=== PATIENT | female | born 1935 | race Caucasian/White ===

== ENCOUNTER 2019-03-07 16:07 | Inpatient (IN) | payer MEDICARE ==
[2019-03-07] MEDS ORDERED: SODIUM CHLORIDE 0.9% 500 ML 500 ML IV STA (16:32)
[2019-03-07] MEDS ORDERED: KETOROLAC 30 MG/ML 1 ML VIAL IVP STA (16:33)
--- NOTE | 2019-03-07 16:45 | ED ---
Back Pain HPI - General Chief Complaint: Back Pain/Injury Stated Complaint: PAIN IN BACK AND RT LEG Time Seen by Provider: 03/07/19 16:19 Source: patient, family, RN notes reviewed Limitations: no limitations - History of Present Illness Initial Comments: This is a 83-year-old female who states for the past 2 weeks or so she's had some low back pain and pain radiating down her right leg. She's had evaluation which included ultrasounds and CAT scan. She states she has had a history of some type of lumbar disc disease in the past. She was on steroids as well as nonsteroidal anti-inflammatories also on tramadol and Vicodin she states pain gets as severe as 9/10 severity she denies any trauma no fevers chills nausea vomiting sweats. No trouble with urination or bowel movements other than to say that she has had some frequency. No blood reported. No abdominal pain she states pain radiates down her leg toward her thigh and groin area. He was only down to the anterior part of her leg. She believes she was initially told was not sciatica. She has have an MRI scheduled for this coming at [facility] she was instructed to come here by her physician because we do have an MRI MD Complaint: back pain - Related Data Home Medications Medication Instructions Recorded Confirmed Acetaminophen Tab [Tylenol Tab] 325 mg PO BID 03/07/19 03/07/19 Aspirin 325 mg PO DAILY 03/07/19 03/07/19 Cholecalciferol [Vitamin D3 (25 1,000 unit PO DAILY 03/07/19 03/07/19 Mcg = 1000 Iu)] Citalopram Hydrobromide [CeleXA] 20 mg PO DAILY 03/07/19 03/07/19 Diazepam [Valium] 2.5 mg PO DAILY 03/07/19 03/07/19 HYDROcodone/APAP 5-325MG [[place] 1 tab PO Q4HR PRN 03/07/19 03/07/19 5-325] LORazepam [Ativan] 0.5 mg PO DAILY 03/07/19 03/07/19 Loperamide HCl [Loperamide] 2 mg PO DAILY PRN 03/07/19 03/07/19 Losartan-Hctz 50-12.5 mg [Hyzaar 1.5 tab PO DAILY 03/07/19 03/07/19 50-12.5] Meloxicam 15 mg PO HS 03/07/19 03/07/19 Multivitamin [Multivitamins Adult 1 tab PO DAILY 03/07/19 03/07/19 Gummies] [place]-3 Fatty Acids/Fish Oil [Fish 1 cap PO DAILY 03/07/19 03/07/19 Oil 1,000 mg Softgel] Horne Colon 10mg 10 mg PO DAILY 03/07/19 03/07/19 lamoTRIgine [LaMICtal] 25 mg PO HS 03/07/19 03/07/19 Allergies Allergy/AdvReac Type Severity Reaction Status Date / Time codeine Allergy Unknown Verified 03/07/19 16:33 Sulfa (Sulfonamide Allergy Unknown Verified 03/07/19 16:33 Antibiotics) Childhood Review of Systems ROS Statement: Those systems with pertinent positive or pertinent negative responses have been documented in the HPI. ROS Other: All systems not noted in ROS Statement are negative. Past Medical History Past Medical History: Hypertension History of Any Multi-Drug Resistant Organisms: None Reported Past Surgical History: Cholecystectomy, Hysterectomy Past Psychological History: Depression Smoking Status: Never smoker Past Alcohol Use History: None Reported Past Drug Use History: None Reported General Exam - General Exam Comments Initial Comments: This is a well-developed sec appearing female who is awake alert oriented 3 Limitations: no limitations General appearance: alert, anxious Head exam: Present: atraumatic, normocephalic, normal inspection Eye exam: Present: normal appearance, PERRL, EOMI. Absent: scleral icterus, conjunctival injection, periorbital swelling ENT exam: Present: normal exam, mucous membranes moist Neck exam: Present: normal inspection. Absent: tenderness, meningismus, lymphadenopathy Respiratory exam: Present: normal lung sounds bilaterally. Absent: respiratory distress, wheezes, rales, rhonchi, stridor Cardiovascular Exam: Present: regular rate, normal rhythm, normal heart sounds. Absent: systolic murmur, diastolic murmur, rubs, gallop, clicks GI/Abdominal exam: Present: soft, normal bowel sounds. Absent: distended, tenderness, guarding, rebound, rigid Rectal exam: Present: deferred Extremities exam: Present: normal inspection, full ROM, normal capillary refill, other (Tenderness to palpation of the right gluteal musculature. No SI joint tenderness). Absent: tenderness, pedal edema, joint swelling, calf tenderness Back exam: Present: normal inspection Neurological exam: Present: alert, oriented X3, CN II-XII intact Psychiatric exam: Present: normal affect, normal mood Skin exam: Present: warm, dry, intact, normal color. Absent: rash Course Vital Signs 03/07/19 03/07/19 16:13 17:03 Temperature 97.9 F Pulse Rate 85 75 Respiratory 18 18 Rate Blood Pressure 171/80 180/85 O2 Sat by Pulse 99 100 Oximetry - Reevaluation(s) Reevaluation #1: 03/07/19 17:37 Reevaluation patient reveals no improvement thus far the pain. She still has significant pain. I did review the imaging that was unremarkable [facility] which was a CAT scan of the pelvis which did show degenerative changes of the hips and spine due to the persistent pain patient be admitted for pain control and MRI tomorrow. MRI currently not available the case is discussed with Dr. Doyle Medical Decision Making - Lab Data Result diagrams: 03/07/19 16:55 03/07/19 16:55 Lab Results 03/07/19 03/07/19 03/07/19 Range/Units 16:50 16:55 16:55 WBC 14.1 H (3.8-10.6) k/uL RBC 4.18 (3.80-5.40) m/uL Hgb 12.7 (11.4-16.0) gm/dL Hct 37.9 (34.0-46.0) % MCV 90.8 (80.0-100.0) fL MCH 30.3 (25.0-35.0) pg MCHC 33.4 (31.0-37.0) g/dL RDW 12.9 (11.5-15.5) % Plt Count 316 (150-450) k/uL Neutrophils % 72 % Lymphocytes % 20 % Monocytes % 6 % Eosinophils % 1 % Basophils % 0 % Neutrophils # 10.2 H (1.3-7.7) k/uL Lymphocytes # 2.8 (1.0-4.8) k/uL Monocytes # 0.8 (0-1.0) k/uL Eosinophils # 0.1 (0-0.7) k/uL Basophils # 0.0 (0-0.2) k/uL Sodium 139 (137-145) mmol/L Potassium 3.7 (3.5-5.1) mmol/L Chloride 98 (98-107) mmol/L Carbon Dioxide 32 H (22-30) mmol/L Anion Gap 9 mmol/L BUN 25 H (7-17) mg/dL Creatinine 0.87 (0.52-1.04) mg/dL Est GFR (CKD-EPI)AfAm 71 (>60 ml/min/1.73 sqM) Est GFR (CKD-EPI)NonAf 62 (>60 ml/min/1.73 sqM) Glucose 110 H (74-99) mg/dL Calcium 9.6 (8.4-10.2) mg/dL Magnesium 2.0 (1.6-2.3) mg/dL Total Bilirubin 0.5 (0.2-1.3) mg/dL AST 31 (14-36) U/L ALT 23 (9-52) U/L Alkaline Phosphatase 85 (38-126) U/L Creatine Kinase 83 (30-135) U/L Total Protein 7.9 (6.3-8.2) g/dL Albumin 4.7 (3.5-5.0) g/dL Urine Color Yellow Urine Appearance Clear (Clear) Urine pH 6.0 (5.0-8.0) Ur Specific [place] 1.030 (1.001-1.035) Urine Protein Trace H (Negative) Urine Glucose (UA) Negative (Negative) Urine Ketones Negative (Negative) Urine Blood Moderate H (Negative) Urine Nitrite Negative (Negative) Urine Bilirubin Negative (Negative) Urine Urobilinogen <2.0 (<2.0) mg/dL Ur Leukocyte Esterase Negative (Negative) Urine RBC 21 H (0-5) /hpf Urine WBC 2 (0-5) /hpf Ur Squamous Epith Cells 2 (0-4) /hpf Amorphous Sediment Rare H (None) /hpf Urine Mucus Rare H (None) /hpf Disposition Clinical Impression: Sciatica, Degeneration of intervertebral disc, Intractable back pain, Hematuria Disposition: ADMITTED IP TO THIS [facility] Condition: Fair Referrals: Mark Bernabe MD [Primary Care Provider] - 1-2 days
[2019-03-07 17:05] LABS: Basophils % (A) 0 %; Eosinophils # (A) 0.1 k/uL (0-0.7); Eosinophils % (A) 1 %; HCT 37.9 % (34.0-46.0); HGB 12.7 gm/dL (11.4-16.0); Lymphocytes # (A) 2.8 k/uL (1.0-4.8); Lymphocytes % (A) 20 %; MCH 30.3 pg (25.0-35.0); MCHC 33.4 g/dL (31.0-37.0); MCV 90.8 fL (80.0-100.0); Mean Platelet Volume 5.5; Monocytes # (A) 0.8 k/uL (0-1.0); Monocytes % (A) 6 %; Neutrophils # (A) 10.2 k/uL (1.3-7.7); Neutrophils % (A) 72 %; Platelet Count 316 k/uL (150-450); RBC 4.18 m/uL (3.80-5.40); RDW 12.9 % (11.5-15.5); WBC 14.1 k/uL (3.8-10.6)
[2019-03-07 17:13] LABS: Amorphous Sediment,Urine Rare /hpf; Appearance,Urine Clear (Clear); Bilirubin,Urine Negative (Negative); Blood,Urine Moderate (Negative); Color,Urine Yellow; Glucose,Urine (UA) Negative (Negative); Ketones,Urine Negative (Negative); Leukocyte Esterase,Urine Negative (Negative); Mucus,Urine Rare /hpf; Nitrite,Urine Negative (Negative); Protein,Urine Trace (Negative); RBC,Urine 21 /hpf (0-5); Squamous Epithelial Cell,Urine 2 /hpf (0-4); Urobilinogen,Urine <2.0 mg/dL (<2.0)
[2019-03-07 17:13] LABS: Albumin 4.7 g/dL (3.5-5.0); Calcium 9.6 mg/dL (8.4-10.2); Potassium 3.7 mmol/L (3.5-5.1); Total Bilirubin 0.5 mg/dL (0.2-1.3); Total Protein 7.9 g/dL (6.3-8.2)
[2019-03-07] MEDS ORDERED: HYDROmorphone 1 MG/ML 1 ML SYRINGE IVP STA (17:37)
[2019-03-07] MEDS ORDERED: ONDANSETRON 4 MG/2 ML VIAL IVP STA (17:37)
[2019-03-07] MEDS ORDERED: ACETAMINOPHEN TAB 325 MG TAB PO PRN (17:40)
[2019-03-07] MEDS ORDERED: NALOXONE 0.4 MG/ML 1 ML VIAL IV PRN (17:40)
[2019-03-07] MEDS ORDERED: HYDROmorphone 1 MG/ML 1 ML SYRINGE IVP PRN (17:40)
[2019-03-07] MEDS: SODIUM CHLORIDE 0.9% 1,000 ML IV SCH (21:09)
[2019-03-07] MEDS ORDERED: ONDANSETRON 4 MG/2 ML VIAL IVP PRN (21:38)
[2019-03-07] MEDS: ONDANSETRON 4 MG/2 ML VIAL IVP PRN (21:59)
--- NOTE | 2019-03-07 22:03 | XR ---
EXAMINATION TYPE: XR chest 1V portable DATE OF EXAM: 03/07/2019 COMPARISON: NONE HISTORY: Heart failure. Short of breath TECHNIQUE: Single frontal view of the chest is obtained. FINDINGS: There is no heart failure nor confluent pneumonic infiltrate. Costophrenic angles are salvador r. Heart size is normal. Bony thorax is intact. IMPRESSION: No active cardiopulmonary disease.
--- NOTE | 2019-03-07 22:21 | HP ---
HISTORY AND PHYSICAL DATE OF SERVICE: 03/07/2019. CHIEF COMPLAINTS: Back pain. HISTORY OF PRESENT ILLNESS: This 83-year-old woman with a past medical history of hypertension, history of cholecystectomy, history of CAD, history of depression, being followed by Dr. Andrew Bernabe in the outpatient setting complaining of back pain since 2 weeks. The patient had outpatient treatment without much relief. Patient also had attended [facility] where CT scan was done and showed some DJD. The patient received steroids and NSAIDS. The pain is felt in the back mostly on the right side radiating down to the foot with crampy type of pain which is felt mostly posterior part and lateral part and the patient came to [facility] for further evaluation and treatment. There is no history of fever, rigors or chills. No history of headache, loss of consciousness or seizures at this time. MRI has been ordered. PAST MEDICAL HISTORY: History of cholecystectomy, CAD, stent, hypertension, history of depression. MEDICATIONS: Prior to admission include: 1. Lamictal 25 mg q.h.s. 2. Meloxicam 50 mg q.h.s. 3. Loperamide 2 mg daily p.r.n. 4. Tylenol 320 mg p.o. b.i.d. 5. Ativan 0.5 mg daily. 6. Valium 2.5 mg daily. 7. Celexa 20 mg p.o. daily. 8. Vitamin D3 1000 daily. 9. Fish oil 1 capsule p.o. daily. 10.Multivitamins 1 p.o. daily. 11.Hyzaar 50/12.5 mg 1.5 daily. 12.Aspirin 320 mg p.o. daily. 13.Hydrocodone 1 tab q.4 p.r.n. ALLERGIES: CODEINE, SULFA. FAMILY HISTORY: History of angina, chest pain, angina. SOCIAL HISTORY: No history of smoking. No history of alcohol. REVIEW OF SYSTEMS: ENT: Diminished vision. Diminished hearing. CARDIOVASCULAR: No angina or palpitations. RESPIRATION: As mentioned earlier. GI no nausea or vomiting. no dysuria. NERVOUS SYSTEM: No numbness or weakness. ALLERGY/IMMUNOLOGY: No asthma, or hayfever. MUSCULOSKELETAL as mentioned earlier. HEMATOLOGY: No history of anemia. ENDOCRINE: No history of diabetes or hypothyroidism. CONSTITUTIONAL: As mentioned earlier. DERMATOLOGY: Negative. RHEUMATOLOGY: Negative. PSYCHIATRIC: As mentioned earlier. PHYSICAL EXAMINATION: Alert and oriented times three. Pulse 73, blood pressure 130/70, respiration 18, temperature 97.9, pulse ox 97% on room air. HEENT: Conjunctivae normal. NECK: No jugular venous distention. No carotid bruit. No lymph node enlargement. CARDIOVASCULAR: S1, S2 muffled. RESPIRATIONS: Breath sounds diminished in the bases. No rhonchi. No crackles. ABDOMEN: Soft, nontender. No mass palpable. LEGS: Significant pain on movement of the right leg. No sensory abnormality. No motor abnormality. Legs otherwise pulses felt normally. SKIN: No ulcer, rash or bleeding. JOINTS: No active deforming arthropathy. LYMPHATICS: No lymph nodes palpable in the neck, axilla or groin. LABS: WBC 14.2, hemoglobin 12.7. Sodium 130. Potassium 3.7, glucose 110. UA noted. ASSESSMENT: 1. Severe back pain, intractable back pain with possible degenerative joint disease and with possible radiculopathy with failure of outpatient treatment and severe gait dysfunction secondary to back pain. 2. Increased WBC. 3. History of coronary artery disease/ stent. 4. History of cholecystectomy. 5. Hypertension. 6. History of depression. RECOMMENDATIONS AND DISCUSSION: This 83-year-old woman who presented with multiple complex medical issues, at this time, I recommend to continue current medications, continue to monitor and symptomatic treatment. Otherwise at this time I will be provided intravenous pain medications cautiously. Orthopedic evaluation. MRI. Resume the home medications. DVT prophylaxis. Incentive spirometry. The prognosis guarded because of multiple complex medical issues. Further recommendations to follow. A copy of this will be forwarded to Dr. Andrew Bernabe who is the primary physician. MMODL / IJN: [id number] / MTDD
[2019-03-07] MEDS: PANTOPRAZOLE 40 MG/10 ML VIAL IVP SCH (23:02)
[2019-03-07] MEDS: HYDROcodone/APAP 5-325MG 1 EACH TAB PO PRN (23:02)
[2019-03-07] MEDS: lamoTRIgine 25 MG TAB PO SCH (23:02)
[2019-03-08] MEDS: HYDROmorphone 1 MG/ML 1 ML SYRINGE IVP PRN ×3 (06:05→16:59)
[2019-03-08] MEDS: SODIUM CHLORIDE 0.9% 1,000 ML IV SCH ×2 (07:55→20:59)
[2019-03-08] MEDS: PANTOPRAZOLE 40 MG/10 ML VIAL IVP SCH (08:03)
[2019-03-08] MEDS: ASPIRIN 325 MG TAB PO SCH ×2 (08:05→08:09)
[2019-03-08] MEDS: HYDROcodone/APAP 5-325MG 1 EACH TAB PO PRN ×2 (08:05→23:13)
[2019-03-08] MEDS: CITALOPRAM HYDROBROMIDE 20 MG TAB PO SCH (08:06)
[2019-03-08] MEDS: HEPARIN SODIUM,PORCINE 5,000 UNIT/ML 1 ML VIAL SQ SCH ×2 (08:06→20:51)
[2019-03-08] MEDS: CHOLECALCIFEROL 1,000 UNIT TAB PO SCH (08:06)
[2019-03-08] MEDS: MULTIVITAMINS, THERA 1 EACH TAB PO SCH (08:07)
[2019-03-08] MEDS: LORazepam 0.5 MG TAB PO SCH (08:07)
[2019-03-08] MEDS ORDERED: DIAZEPAM 5 MG TAB PO SCH (09:00)
[2019-03-08] MEDS ORDERED: NON FORMULARY DRUG (Omega-3 Fatty Acids/Fish Oil [Fish Oil 1,000 Mg Softgel] 1 CAP) PO SCH (09:00)
--- NOTE | 2019-03-08 09:39 | P.CNOR ---
History of Present Illness - HPI Consult date: 03/08/19 Consult reason: low back pain, other (Right lower extremity radiculopathy) History of present illness: Patient's very pleasant 83-year-old female has been having severe right lower extremity pain over the past 2 weeks. She said she had back pain with past month and has history of sciatica on the left side but this is the first time she had issues in her right lower extremity. She denies any specific trauma. She denies any change in her activity. She normally ambulates and exercises almost daily. She says over the past 2 weeks she has been having severe difficulty with any sort of mobilization and ambulation to the point where she is essentially unable to get out of better get around the house on her own. She says the pain travels from her back over her gluteus and down her right leg all the way down to her foot. She says that her leg does not feel weak but she is unable to manage due to the pain. She denies any changes in bowel bladder function she denies any fevers chills. She denies any night sweats. She denies any shortness of breath. she denies any specific injury after back or leg. Review of Systems Estimated per HPI. Denies any trauma to her back or lower extremity. Denies any recent falls. She is normally a community ambulate without any assistance. She was trying to treat these issues appropriately as outpatient with Dr. Bernabe and underwent medications with anti-inflammatories as well as Medrol Dosepak was not having relief. Past Medical History Past Medical History: Hypertension History of Any Multi-Drug Resistant Organisms: None Reported Past Surgical History: Cholecystectomy, Heart Catheterization With Stent, Hysterectomy Past Anesthesia/Blood Transfusion Reactions: No Reported Reaction Date of Last Stent Placement:: 2008 Past Psychological History: Depression Smoking Status: Never smoker Past Alcohol Use History: None Reported Past Drug Use History: None Reported - Past Family History Father Family Medical History: Chest Pain / Angina Medications and Allergies Home Medications Medication Instructions Recorded Confirmed Type Acetaminophen Tab [Tylenol Tab] 325 mg PO BID 03/07/19 03/07/19 History Aspirin 325 mg PO DAILY 03/07/19 03/07/19 History Cholecalciferol [Vitamin D3 (25 1,000 unit PO DAILY 03/07/19 03/07/19 History Mcg = 1000 Iu)] Citalopram Hydrobromide [CeleXA] 20 mg PO DAILY 03/07/19 03/07/19 History Diazepam [Valium] 2.5 mg PO DAILY 03/07/19 03/07/19 History HYDROcodone/APAP 5-325MG [[place] 1 tab PO Q4HR PRN 03/07/19 03/07/19 History 5-325] LORazepam [Ativan] 0.5 mg PO DAILY 03/07/19 03/07/19 History Loperamide HCl [Loperamide] 2 mg PO DAILY PRN 03/07/19 03/07/19 History Losartan-Hctz 50-12.5 mg [Hyzaar 1.5 tab PO DAILY 03/07/19 03/07/19 History 50-12.5] Meloxicam 15 mg PO HS 03/07/19 03/07/19 History Multivitamin [Multivitamins Adult 1 tab PO DAILY 03/07/19 03/07/19 History Gummies] [place]-3 Fatty Acids/Fish Oil [Fish 1 cap PO DAILY 03/07/19 03/07/19 History Oil 1,000 mg Softgel] [place] 10mg 10 mg PO DAILY 03/07/19 03/07/19 History lamoTRIgine [LaMICtal] 25 mg PO HS 03/07/19 03/07/19 History Allergies Allergy/AdvReac Type Severity Reaction Status Date / Time codeine Allergy Unknown Verified 03/07/19 16:33 Sulfa (Sulfonamide Allergy Unknown Verified 03/07/19 16:33 Antibiotics) Childhood Physical Examination Osteopathic Statement: *. No significant issues noted on an osteopathic structural exam other than those noted in the History and Physical/Consult. - L Spine: dermatomal strength & reflexes bilateral Strength: hip flexion: 5/5 (At her low back she has some paravertebral spasm in her lumbosacral junction. There is no open wounds lacerations or abrasions. At her lower extremity she has 5 out of 5 strength with hip flexion and knee ext ension dorsal flexion plantarflexion. There is no pain with internal or external rotation of her hips. She is able to lift her legs up off the bed independently. Her thighs and calves soft nontender. There is no swelling. She is neurologically intact. distal pulses are intact.) Results Apparently she had a computed tomography scan done at [facility] but we do not have those results or the images available to us. - Labs Labs: Abnormal Lab Results - Last 24 Hours (Table) 03/07/19 03/07/19 03/07/19 Range/Units 16:50 16:55 16:55 WBC 14.1 H (3.8-10.6) k/uL Neutrophils # 10.2 H (1.3-7.7) k/uL Carbon Dioxide 32 H (22-30) mmol/L BUN 25 H (7-17) mg/dL Glucose 110 H (74-99) mg/dL Urine Protein Trace H (Negative) Urine Blood Moderate H (Negative) Urine RBC 21 H (0-5) /hpf Amorphous Sediment Rare H (None) /hpf Urine Mucus Rare H (None) /hpf H & H 03/07/19 Range/Units 16:55 Hgb 12.7 (11.4-16.0) gm/dL Hct 37.9 (34.0-46.0) % Result Diagrams: 03/07/19 16:55 03/07/19 16:55 Assessment and Plan Assessment: Acute right lower extremity radiculopathy Inability to ambulate Low back pain no focal neurologic deficit Plan: Acute right lower extremity radiculopathy Inability to ambulate Low back pain no focal neurologic deficit Patient has severe right lower extremity radiculopathy with inability to ambulate. She had some short-term relief with her IV pain medication overnight but may have some better lasting relief with IV steroid medications and then converting to oral steroids. She has significant radicular symptoms which seem to stem from her lumbar spine and I think the MRI is necessary to further ascertain the severity of her stenosis for possible new herniation at her lumbar spine. The MRI has already been ordered and will follow up for its results. If she is not having significant benefit with medication and I think she is a candidate for interventional pain management and will consult pain management for possible epidural steroid injection. She should continue her medical management in regards to her other medical issues and will continue follow her closely. We'll have further recommendations once the MRI is available.
[2019-03-08] MEDS: LOSARTAN-HCTZ 50-12.5 MG 1 EACH TAB PO SCH (10:02)
[2019-03-08 10:19] LABS: Calcium 8.9 mg/dL (8.4-10.2); Potassium 3.8 mmol/L (3.5-5.1)
[2019-03-08] MEDS: methylPREDNISolone SOD SUCCI 125 MG/2 ML VIAL IV SCH ×2 (10:20→20:56)
[2019-03-08 10:27] LABS: Basophils % (A) 0 %; Eosinophils # (A) 0.1 k/uL (0-0.7); Eosinophils % (A) 1 %; HCT 33.4 % (34.0-46.0); HGB 10.8 gm/dL (11.4-16.0); Lymphocytes # (A) 2.8 k/uL (1.0-4.8); Lymphocytes % (A) 24 %; MCH 29.9 pg (25.0-35.0); MCHC 32.2 g/dL (31.0-37.0); MCV 92.8 fL (80.0-100.0); Mean Platelet Volume 5.8; Monocytes # (A) 0.7 k/uL (0-1.0); Monocytes % (A) 6 %; Neutrophils # (A) 7.9 k/uL (1.3-7.7); Neutrophils % (A) 67 %; Platelet Count 261 k/uL (150-450); RDW 12.8 % (11.5-15.5); WBC 11.7 k/uL (3.8-10.6)
[2019-03-08] MEDS: ONDANSETRON 4 MG/2 ML VIAL IVP PRN (11:00)
--- NOTE | 2019-03-08 15:00 | P.PAINCN ---
History of Present Illness - Reason for Consult Consult date: 03/08/19 - Chief Complaint Low back pain with radiation to right lower extremity - History of Present Illness Patient is a very pleasant 83-year-old female who was referred to pain management by Dr. Mcgowan. About one month ago, she reports having right-sided low back pain radiating to right buttock. She denies any inciting event. She used BenGay and this resolved. Then, on 02/21/2019, she reports that she woke up from bed and couldn't put weight on her right leg. She was evaluated by her PCP who ordered oral steroids and NSAIDs, she obtained no benefit from this. Then, she was given tramadol and an Xray was ordered. She was then sent to physical therapy, with no benefit. She was also given IM steroid injection. On March 04, she had significantly worse pain and was evaluated at [facility] on March 05 at which point a computed tomography scan was done of her low back as well as lower extremity Doppler, which was negative. She was prescribed [place] and discharged. Yesterday, her pain was severe and she was brought [facility]. She received IV pain medications which helped significantly. However these are causing her to be nauseated and constipated. Of note, prior to this admission, the patient was extremely active, walking a mile a day, riding her bicycle for 2 miles and participating in exercise groups. This has significantly debilitated her. Her pain is located in the right side of her low back radiating to the front of her right thigh and hurst up to ankle. She denies pain in toes. She denies numbness, tingling, weakness. She does report that approximately 2 years ago, she had left sided sciatica that resolved after an injection. Other than this, she has not undergone any injections. Review of Systems Review of systems is negative for chest pain, shortness of breath, new onset weakness, numbness/tingling, abdominal pain, malaise, fever, night sweats, chills, homicidal or suicidal ideation, or bowel or bladder incontinence. She does endorse constipation and nausea since she was started on narcotics. Past Medical History Past Medical History: Hypertension History of Any Multi-Drug Resistant Organisms: None Reported Past Surgical History: Cholecystectomy, Heart Catheterization With Stent, Hysterectomy Past Anesthesia/Blood Transfusion Reactions: No Reported Reaction Date of Last Stent Placement:: 2008 Past Psychological History: Depression Smoking Status: Never smoker Past Alcohol Use History: None Reported Past Drug Use History: None Reported - Past Family History Father Family Medical History: Chest Pain / Angina Medications and Allergies Home Medications Medication Instructions Recorded Confirmed Type Acetaminophen Tab [Tylenol Tab] 325 mg PO BID 03/07/19 03/07/19 History Aspirin 325 mg PO DAILY 03/07/19 03/07/19 History Cholecalciferol [Vitamin D3 (25 1,000 unit PO DAILY 03/07/19 03/07/19 History Mcg = 1000 Iu)] Citalopram Hydrobromide [CeleXA] 20 mg PO DAILY 03/07/19 03/07/19 History Diazepam [Valium] 2.5 mg PO DAILY 03/07/19 03/07/19 History HYDROcodone/APAP 5-325MG [[place] 1 tab PO Q4HR PRN 03/07/19 03/07/19 History 5-325] LORazepam [Ativan] 0.5 mg PO DAILY 03/07/19 03/07/19 History Loperamide HCl [Loperamide] 2 mg PO DAILY PRN 03/07/19 03/07/19 History Losartan-Hctz 50-12.5 mg [Hyzaar 1.5 tab PO DAILY 03/07/19 03/07/19 History 50-12.5] Meloxicam 15 mg PO HS 03/07/19 03/07/19 History Multivitamin [Multivitamins Adult 1 tab PO DAILY 03/07/19 03/07/19 History Gummies] [place]-3 Fatty Acids/Fish Oil [Fish 1 cap PO DAILY 03/07/19 03/07/19 History Oil 1,000 mg Softgel] Horne Colon 10mg 10 mg PO DAILY 03/07/19 03/07/19 History lamoTRIgine [LaMICtal] 25 mg PO HS 03/07/19 03/07/19 History Allergies Allergy/AdvReac Type Severity Reaction Status Date / Time codeine Allergy Unknown Verified 03/07/19 16:33 Sulfa (Sulfonamide Allergy Unknown Verified 03/07/19 16:33 Antibiotics) Childhood Physical Exam Vitals: Vital Signs Temp Pulse Pulse Resp BP BP Pulse Ox 03/08/19 08:00 16 03/08/19 07:00 97.7 F 71 16 150/70 98 03/07/19 20:10 98.1 F 70 20 150/70 97 03/07/19 19:08 73 18 139/73 97 03/07/19 17:03 75 18 180/85 100 03/07/19 16:13 97.9 F 85 18 171/80 99 Intake and Output 03/07/19 03/08/19 03/08/19 22:59 06:59 14:59 Intake Total 200 Balance 200 Intake: Oral 200 Other: Voiding Method Toilet Toilet Bedside Commode Bedside Commode # Voids 1 Weight 69.4 kg Physical exam: GENERAL: Well appearing, in no acute distress PSYCH: Mood and affect is appropriate. Awake, alert, and oriented SKIN: Skin color, texture, turgor normal, no rashes or lesions HEENT: Normocephalic, atraumatic. EOM intact CV: No pedal edema RESP: Respirations are unlabored, no audible wheezing GI: Abdomen non-distended MUSCULOSKELETAL: Bilateral lower extremity strength is normal and symmetric, 5 on 5 throughout. No atrophy or tone abnormalities are noted. Lumbar spine: Straight leg raising in the sitting position is positive on the right side for radicular pain. Tenderness to palpation over the lumbar spine and paraspinous muscles on the right side. Buttocks: No pain to palpation over the PSIS Extremities: Peripheral joint ROM is full and pain free without obvious instability or laxity in all four extremities. No edema or skin discolorations noted. NEUR: Bilateral lower extremity coordination and muscle stretch reflexes are physiologic and symmetric. Negative clonus bilaterally. No loss of sensation is noted. Results Results: Apparently she had a computed tomography scan done at [facility] but we do not have those results or the images available to us. She is scheduled to undergo an MRI today, these results are not yet available. CBC & Chem 7: 03/08/19 09:33 03/08/19 09:33 Labs: Abnormal Lab Results - Last 24 Hours (Table) 03/07/19 03/07/19 03/07/19 Range/Units 16:50 16:55 16:55 WBC 14.1 H (3.8-10.6) k/uL RBC (3.80-5.40) m/uL Hgb (11.4-16.0) gm/dL Hct (34.0-46.0) % Neutrophils # 10.2 H (1.3-7.7) k/uL Carbon Dioxide 32 H (22-30) mmol/L BUN 25 H (7-17) mg/dL Glucose 110 H (74-99) mg/dL Urine Protein Trace H (Negative) Urine Blood Moderate H (Negative) Urine RBC 21 H (0-5) /hpf Amorphous Sediment Rare H (None) /hpf Urine Mucus Rare H (None) /hpf 03/08/19 03/08/19 Range/Units 09:33 09:33 WBC 11.7 H (3.8-10.6) k/uL RBC 3.60 L (3.80-5.40) m/uL Hgb 10.8 L (11.4-16.0) gm/dL Hct 33.4 L (34.0-46.0) % Neutrophils # 7.9 H (1.3-7.7) k/uL Carbon Dioxide 31 H (22-30) mmol/L BUN 27 H (7-17) mg/dL Glucose 106 H (74-99) mg/dL Urine Protein (Negative) Urine Blood (Negative) Urine RBC (0-5) /hpf Amorphous Sediment (None) /hpf Urine Mucus (None) /hpf Assessment and Plan Plan: Assessment: Acute right lower extremity radiculopathy Inability to ambulate Low back pain no focal neurologic deficit Plan: 1. Awaiting MRI. Once MRI obtained, we can decide course of action from a procedure standpoint. I have asked that the patient be nothing by mouth from midnight and hold a.m. dose of heparin in anticipation of procedure tomorrow. 2. Medication management per primary service PQRS Measure Charge Sheet PQRS Narrative: Smoking Status Never smoker Do You Want the Pneumonia Vaccine Up to Date Vaccine AT THIS TIME? Blood Pressure [Left Arm] 150/70 Blood Pressure 139/73 Pain Intensity [Generalized] 4 Pain Intensity 6 Pain Scale Used Numeric (1 - 10) Scale Used Numeric (1 - 10) Home Medications: Ambulatory Orders Acetaminophen Tab [Tylenol Tab] 325 mg PO BID 03/07/19 Aspirin 325 mg PO DAILY 03/07/19 Cholecalciferol [Vitamin D3 (25 Mcg = 1000 Iu)] 1,000 unit PO DAILY 03/07/19 Citalopram Hydrobromide [CeleXA] 20 mg PO DAILY 03/07/19 Diazepam [Valium] 2.5 mg PO DAILY 03/07/19 HYDROcodone/APAP 5-325MG [[place] 5-325] 1 tab PO Q4HR PRN 03/07/19 LORazepam [Ativan] 0.5 mg PO DAILY 03/07/19 Loperamide HCl [Loperamide] 2 mg PO DAILY PRN 03/07/19 Losartan-Hctz 50-12.5 mg [Hyzaar 50-12.5] 1.5 tab PO DAILY 03/07/19 Meloxicam 15 mg PO HS 03/07/19 Multivitamin [Multivitamins Adult Gummies] 1 tab PO DAILY 03/07/19 [place]-3 Fatty Acids/Fish Oil [Fish Oil 1,000 mg Softgel] 1 cap PO DAILY 03/07/19 Horne Colon 10mg 10 mg PO DAILY 03/07/19 lamoTRIgine [LaMICtal] 25 mg PO HS 03/07/19
--- NOTE | 2019-03-08 18:27 | MR ---
EXAMINATION TYPE: MR lumbar spine wo con DATE OF EXAM: 03/08/2019 COMPARISON: NONE HISTORY: Intractable back pain. TECHNIQUE: Multiplanar, multisequence imaging of the lumbar spine is performed without IV contrast. FINDINGS: Sagittal images of the lumbar spine show vertebral body heights and alignment to appear sat isfactory. Multilevel disc desiccation with fairly moderate to advanced multilevel disc space narrowi ng L2-L3 through the L4-L5 levels as there is vacuum disc phenomenon and moderate anterior spurring. The conus medullaris is normal in position and signal ending mid L1 level. Heterogeneous endplate ch anges most prominent L3-L4 level where there is predominantly Modic type II changes noted. Axial images at T12-L1 levels show mild facet degenerative changes and ligament flavum hypertrophy. Axial images at L1-L2 levels mild/moderate broad-based disc bulge effacing anterior thecal sac with m oderate facet degenerative changes and ligament hypertrophy effacing the posterior lateral thecal axi al image 23. Bilateral neural foramina are patent. Axial images at L2-L3 level to moderate broad-based posterior disc protrusion effacing intrathecal sa c with mild/moderate facet degenerative changes and ligament flavum hypertrophy effacing posterior la teral thecal sac. There is mild to moderate right greater than left bilateral anterior-inferior neura l foraminal narrowing. Axial images at the L3-L4 level show moderate to advanced facet degenerative changes bilaterally effa cing posterior lateral thecal sac and moderate posterior spur disc complex effacing anterior thecal s ac on axial images 12 and 13. There is [id number] bilateral anterior inferior lateral foraminal narrowing. Axial images at the L4-L5 level moderate to severe broad-based posterior disc protrusion effacing ant erior thecal sac with moderate to advanced facet degenerative changes effacing the lateral thecal sac axial image 8. There is mild to moderate left and moderate to severe right-sided neural foraminal na rrowing, some encroachment right L4 nerve block present sagittal image 14 and axial image 8 due to mo re prominent right lateral disc protrusion component. Axial images at the L5-S1 level mild/moderate facet degenerative changes bilaterally with tiny centra l disc protrusion minimally effacing the anterior thecal sac, bilateral neural foramina are patent. No suspicious incidental retroperitoneal findings seen. IMPRESSION: Some multilevel degenerative changes in lumbar spine as detailed above. Most prominent sp inal canal effacement or stenosis noted L3-L4 level. Suspect encroachment on right L4 nerve thought p resent at L4-L5 level. Correlate clinically.
--- NOTE | 2019-03-08 20:55 | PN ---
PROGRESS NOTE DATE OF SERVICE: 03/08/2019 This 83-year-old woman who was admitted with severe back pain, being evaluated by Dr. Mcgowan and as well as Pain Management. The patient also has an MRI scheduled. No chest pain. No palpitations. No fever. EXAM: Alert and oriented x3. Pulse 74. Blood pressure 147/69, respirations 16, temperature 98.2, pulse ox 98% on room air. HEENT: Conjunctivae normal. NECK: No jugular venous distention. CARDIOVASCULAR: S1, S2 muffled. RESPIRATIONS: Breath sounds diminished in the bases. No rhonchi. No crackles. ABDOMEN is soft. Nontender. LEGS no edema. No swelling. CENTRAL NERVOUS SYSTEM: No focal deficits. Examination of the back: Tenderness present. Straight leg raising test positive on the right side. LABS: WBC 11.7, hemoglobin 10.8. UA noted. ASSESSMENT: 1. Severe back pain, intractable back pain with possible degenerative joint disease and as well as acute radiculopathy on the right side with failure of outpatient treatment and severe gait dysfunction secondary to back pain. 2. Increased WBC. 3. History of coronary artery disease/stent. 4. History of cholecystectomy. 5. Hypertension. 6. History of anxiety and depression. RECOMMENDATIONS AND DISCUSSION: Recommend to continue current medications, management and symptomatic. Continue with IV steroids. Pain medications. Pain management consultations and MRI of the back. Further recommendations to follow. MMODL / IJN: [id number] /
[2019-03-08] MEDS: MELOXICAM 7.5 MG TAB PO SCH (20:56)
[2019-03-08] MEDS: lamoTRIgine 25 MG TAB PO SCH (20:56)
[2019-03-08 23:22] LABS: Glucose,Whole Blood 137 mg/dL (75-99)
[2019-03-08] MEDS: INSULIN ASPART (NovoLOG) 100 UNIT/ML VIAL SQ SCH (23:22)
[2019-03-09] MEDS: CALCIUM CARBONATE 500 MG CHEWABLE PO PRN ×2 (05:12→23:11)
[2019-03-09 07:34] LABS: Glucose,Whole Blood 124 mg/dL (75-99)
[2019-03-09] MEDS: CHOLECALCIFEROL 1,000 UNIT TAB PO SCH (07:39)
[2019-03-09] MEDS: MULTIVITAMINS, THERA 1 EACH TAB PO SCH (07:39)
[2019-03-09] MEDS: LORazepam 0.5 MG TAB PO SCH ×2 (07:39→07:49)
[2019-03-09] MEDS: LOSARTAN-HCTZ 50-12.5 MG 1 EACH TAB PO SCH (07:39)
[2019-03-09] MEDS: methylPREDNISolone SOD SUCCI 125 MG/2 ML VIAL IV SCH (07:40)
[2019-03-09] MEDS: CITALOPRAM HYDROBROMIDE 20 MG TAB PO SCH (07:40)
[2019-03-09] MEDS: SODIUM CHLORIDE 0.9% 1,000 ML IV SCH ×2 (07:40→20:07)
[2019-03-09] MEDS: INSULIN ASPART (NovoLOG) 100 UNIT/ML VIAL SQ SCH ×4 (07:40→20:44)
[2019-03-09] MEDS: PANTOPRAZOLE 40 MG/10 ML VIAL IVP SCH (07:40)
[2019-03-09] MEDS: HYDROmorphone 1 MG/ML 1 ML SYRINGE IVP PRN ×2 (07:46→13:50)
[2019-03-09 08:59] LABS: Calcium 9.1 mg/dL (8.4-10.2)
[2019-03-09 09:19] LABS: Basophils % (A) 0 %; Eosinophils % (A) 0 %; HCT 32.9 % (34.0-46.0); HGB 10.9 gm/dL (11.4-16.0); Lymphocytes # (A) 1.5 k/uL (1.0-4.8); Lymphocytes % (A) 11 %; MCH 30.7 pg (25.0-35.0); Mean Platelet Volume 5.9; Monocytes # (A) 0.5 k/uL (0-1.0); Monocytes % (A) 4 %; Neutrophils # (A) 11.3 k/uL (1.3-7.7); Neutrophils % (A) 84 %; Platelet Count 266 k/uL (150-450); RBC 3.54 m/uL (3.80-5.40); RDW 12.8 % (11.5-15.5); WBC 13.4 k/uL (3.8-10.6)
[2019-03-09] MEDS ORDERED: IV FLUID CONTINUATION 300 ML IV ONE (09:23)
--- NOTE | 2019-03-09 09:36 | P.PN ---
Progress Note - Text Progress Note Date: 03/09/19 The patient is seen and examined today at bedside. She is being readied be transferred down stairs for epidural steroid injection with pain management. She has not discussed this with pain management yet. She had her MRI yesterday. On exam she is alert she's oriented 3. She is afebrile. Vital signs are stable Lower extremities have sustained dorsal to plantar flexion and EHL intact. Her thigh and calf soft nontender. There is no neurologic change. Her MRI shows significant stenosis L3 4 and L4 5. There is bilateral foraminal stenosis with central encroachment. There is no acute herniation that we can see specifically but she does have diffuse disc protrusion at both levels bi laterally. Assessment and plan New right Lower extremity radiculopathy, and inability to ambulate Spinal stenosis L3 4 L4 5 Degenerative disc disease Facet arthrosis The patient has a new issue at her right leg with significant pain and radiculopathy. She has severe stenosis L3 4 and L4 5 and foraminal stenosis with degenerative changes. This seems to be an acute on chronic exacerbation of her lumbar issues and she can do well with dedicated conservative treatment and interventional pain management. She is scheduled to have interventional pain management and epidural steroid injection for her lumbar spine today and I think that is appropriate. Hopefully the injection will give her acute relief so that she can improve her mobility and be able to continue management on an outpatient basis. If she does go home then she should probably have an oral tapering dose of steroid. Hopefully the interventional epidural steroid injections can be effective for her. She could be a candidate for surgical intervention for decompression with possible stabilization if her symptoms persist. We do not plan on pursuing surgical intervention on this admission at this point and would recommend c ontinued conservative care hopefully on an outpatient basis. If she is able to be mobilized and stable with her pain control than it is okay from a spine standpoint for her to be discharged home with follow-up in the next couple of weeks. I discussed this with her and her daughter and they understand.
[2019-03-09] MEDS ORDERED: LABETALOL 5 MG/ML VIAL MDV IV ONE (09:41)
--- NOTE | 2019-03-09 10:33 | P.PCN ---
Date of Procedure: 03/09/19 Procedure(s) Performed: DESCRIPTION OF PROCEDURE(S): PREOPERATIVE DIAGNOSIS: Lumbar RadicularPain POSTOPERATIVE DIAGNOSIS: Lumbar Radicular Pain PROCEDURE 1. Transforaminal epidural steroid injection under fluoroscopic guidance right L4-L5 2. Lumbar epidurogram ANESTHESIA: Local with 1% lidocaine 3 ml ; moderate sedation with fentanyl 50 micrograms. PROCEDURE INDICATION: The patient with low back pain and radiculopathy symptoms unresponsive to conservative treatment. PROCEDURE DESCRIPTION / TECHNIQUE: The patient was seen and identified in the preoperative area. Risks, benefits, complications, and alternatives were discussed with the patient. The patient agreed to proceed with the procedure and signed the consent. IV was started, and vital signs were stable. Patient was taken to the OR and time out was completed. The patient was placed in the prone position on procedure table and a pillow was placed under the abdomen to reduce lumbar lordosis. The lumbosacral area was prepped and draped in the usual sterile fashion. Vital signs were closely monitored during the procedure. Conscious sedation was used. Using oblique fluoroscopy, the chin of the ``Hua dog and the skin and deeper tissues just below was localized with 1% lidocaine. Subsequently, a 22- gauge 3.5-inch spinal needle was advanced under a tunneled view fluoroscopic guidance just underneath the chin of the ``Hua dog . Under lateral fluoroscopy, the needle was then advanced to the posterior border of the foramen. After negative aspiration of CSF and blood and with no paresthesias, 1 mL of Omnipaque-240 contrast dye was injected and there was no evidence of intravascular injection. The injectate solution was then delivered, which consisted of 80 mg of Depo-Medrol and 2 mL of 1% preservative-free lidocaine. The needle was withdrawn intact. At the end of the procedure, skin was cleansed, and bandages were applied. Images were saved to the chart. COMPLICATIONS: None COMMENTS: Her pressure was elevated and preop that she received 5 of labetalol, during the procedure pressure is also elevated so she received 10 of labetalol. She will go to phase I recovery period DISPOSITION / PLANS: The patient was placed in a supine position and transferred to the recovery area in a stable condition for observation. There was no evidence of lower extremity motor or sensory deficit after the procedure. She is an inpatient, so she will go back to her room once she is done with recovery.
[2019-03-09] MEDS ORDERED: SODIUM CHLORIDE 0.9% 1,000 ML IV ONE ×3 (10:43→11:24)
--- NOTE | 2019-03-09 10:48 | FL ---
EXAMINATION TYPE: FL guided pain mgmt statistic DATE OF EXAM: 03/09/2019 CLINICAL HISTORY: Low back pain. TECHNIQUE: Fluoroscopy. COMPARISON: None. FINDINGS: Fluoroscopic guidance was provided during pain relief procedure performed by anesthesia Dr . A total of 7 seconds of fluoroscopic time was utilized during the procedure and 3 spot images are acquired. Images acquired shows needle localization at L4 level. IMPRESSION: As Above.
[2019-03-09 12:27] LABS: Glucose,Whole Blood 172 mg/dL (75-99)
[2019-03-09 17:17] LABS: Glucose,Whole Blood 179 mg/dL (75-99)
--- NOTE | 2019-03-09 18:58 | PN ---
PROGRESS NOTE DATE OF SERVICE: 03/09/2019 This 83-year-old woman who was admitted with severe intractable back pain, possible radiculopathy, underwent transforaminal epidural steroid injection under fluoroscopic guidance right L4-5 by Pain Management. No chest pain. No palpitations. No fever. EXAM: Alert and oriented x3. Pulse 74, blood pressure 120/60, respirations 16, temperature 98.4, pulse ox 94% on room air. HEENT: Conjunctivae normal. NECK: No JVD. CARDIOVASCULAR: S1, S2 muffled. RESPIRATORY: Breath sounds diminished in the bases. No rhonchi. No crackles. ABDOMEN is soft, nontender. LEGS: No edema. No swelling. NERVOUS SYSTEM: No focal deficits, but movement of the right leg is still painful. LAB STUDIES: WBC 13.2, hemoglobin 10.9. ASSESSMENT: 1. Severe back pain, intractable back pain with possible degenerative joint disease of the lumbar spine with acute radiculopathy, the right side with failure of outpatient. 2. Severe gait dysfunction secondary to back pain, status post lumbar transforaminal epidural steroid injection under fluoroscopic guidance, L4-5. 3. Increased WBC, possibly reactive. 4. History of coronary artery disease/ stent. 5. History of cholecystectomy. 6. History of hypertension. 7. History of anxiety and depression. 8. Anemia, normocytic anemia, chronic anemia, possibly nutritional. 9. Increased random blood sugar, possibly secondary to steroids. RECOMMENDATIONS AND DISCUSSION: This 83-year-old woman who presented with multiple medical issues, at this time, I recommend to continue current medications, management and symptomatic treatment. Closely follow with Orthopedic surgery and Pain Management. We will continue to monitor. Otherwise, increase ambulation. Further recommendations to follow. MMODL / IJN: [id number] /
[2019-03-09 20:27] LABS: Glucose,Whole Blood 133 mg/dL (75-99)
[2019-03-09] MEDS: MELOXICAM 7.5 MG TAB PO SCH (20:42)
[2019-03-09] MEDS: HYDROcodone/APAP 5-325MG 1 EACH TAB PO PRN (20:43)
[2019-03-09] MEDS: lamoTRIgine 25 MG TAB PO SCH (20:43)
[2019-03-10] MEDS: HYDROcodone/APAP 5-325MG 1 EACH TAB PO PRN ×3 (02:54→20:46)
[2019-03-10] MEDS: SODIUM CHLORIDE 0.9% 1,000 ML IV SCH ×2 (07:12→20:48)
[2019-03-10 07:16] LABS: Glucose,Whole Blood 102 mg/dL (75-99)
[2019-03-10] MEDS: INSULIN ASPART (NovoLOG) 100 UNIT/ML VIAL SQ SCH ×2 (07:29→11:34)
[2019-03-10] MEDS: ASPIRIN 325 MG TAB PO SCH (07:29)
[2019-03-10] MEDS: LORazepam 0.5 MG TAB PO SCH (07:30)
[2019-03-10] MEDS: CITALOPRAM HYDROBROMIDE 20 MG TAB PO SCH (07:30)
[2019-03-10] MEDS: CHOLECALCIFEROL 1,000 UNIT TAB PO SCH (07:30)
[2019-03-10] MEDS: LOSARTAN-HCTZ 50-12.5 MG 1 EACH TAB PO SCH (07:30)
[2019-03-10] MEDS: MULTIVITAMINS, THERA 1 EACH TAB PO SCH (07:30)
[2019-03-10] MEDS: PANTOPRAZOLE 40 MG TABLET PO SCH (07:30)
[2019-03-10] MEDS: HYDROmorphone 1 MG/ML 1 ML SYRINGE IVP PRN ×2 (07:31→15:06)
[2019-03-10 09:18] LABS: Basophils % (A) 0 %; Eosinophils % (A) 0 %; HCT 32.8 % (34.0-46.0); HGB 10.3 gm/dL (11.4-16.0); Lymphocytes % (A) 14 %; MCH 29.5 pg (25.0-35.0); MCHC 31.5 g/dL (31.0-37.0); MCV 93.6 fL (80.0-100.0); Mean Platelet Volume 6.4; Monocytes # (A) 0.6 k/uL (0-1.0); Monocytes % (A) 5 %; Neutrophils % (A) 79 %; Platelet Count 249 k/uL (150-450); RDW 13.2 % (11.5-15.5); WBC 13.8 k/uL (3.8-10.6)
[2019-03-10 09:30] LABS: Calcium 9.3 mg/dL (8.4-10.2); Potassium 3.4 mmol/L (3.5-5.1)
[2019-03-10] MEDS: CYCLOBENZAPRINE 10 MG TAB PO PRN ×3 (09:54→20:46)
[2019-03-10] MEDS ORDERED: Potassium Replacement Protocol 1 EACH MISC MISCELLANE PRN (10:37)
[2019-03-10] MEDS: DOCUSATE 100 MG CAP PO PRN (11:16)
[2019-03-10 11:31] LABS: Glucose,Whole Blood 103 mg/dL (75-99)
--- NOTE | 2019-03-10 13:08 | P.PN ---
Progress Note - Text Progress Note Date: 03/10/19 The patient is seen and examined today at bedside. She is postoperative day #1 status post epidural steroid injection with interventional pain management. She said that yesterday after the injection she did great and is feeling very good until the evening when she started having increased pain. She was hoping to go home yesterday but needed IV pain medication in order to tolerate her symptoms and had to stay overnight. She's had more IV medications morning but has not had some since then. She says currently the pain is tolerable but she is very scared about the pain and somewhat anxious and redness in this regard. At her exam she is afebrile with stable vital signs Her lower extremity is have sustained a slash my flexion and EHL intact Her thighs and calves soft nontender Assessment and plan Acute on chronic low back pain with exacerbation and radiculopathy her lower extremities Spinal stenosis Foraminal stenosis Degenerative disc disease Facet arthrosis the patient has been having pain over the past month with her back and lower extremities. This seems some directly from her spinal stenosis and facet arthrosis at her lumbar spine as she has significant exacerbation. She had some short-term benefit yesterday after her epidural steroid injection and it could've been medically anesthetic was giving her relief prior to this steroid having affected. The steroid may have a chance to have effect for her over the next couple of days and she may continue to improve with the steroid injection and I think she should continue with conservative management for that time being. Hopefully she'll be able to be discharged home with oral medication. We will defer the medication regimen per her primary. She could be a candidate for surgical intervention down the line if her symptoms do not improve for conservative management were to fail for her over the next several w eeks. I discussed this with her and try to answer questions best my ability. We will plan to follow her up on an outpatient basis and consider surgery if necessary.
[2019-03-10] MEDS: lamoTRIgine 25 MG TAB PO SCH (20:45)
[2019-03-10] MEDS: MELOXICAM 7.5 MG TAB PO SCH (20:45)
[2019-03-11] MEDS: HYDROcodone/APAP 5-325MG 1 EACH TAB PO PRN ×3 (03:42→12:40)
[2019-03-11] MEDS: CYCLOBENZAPRINE 10 MG TAB PO PRN ×2 (03:42→12:41)
[2019-03-11 04:13] VITALS: BP 167/84; PULSE 70; RESP 18; TEMP 98.2
[2019-03-11] MEDS: LORazepam 0.5 MG TAB PO SCH (08:26)
[2019-03-11] MEDS: ASPIRIN 325 MG TAB PO SCH (08:27)
[2019-03-11] MEDS: CHOLECALCIFEROL 1,000 UNIT TAB PO SCH (08:27)
[2019-03-11] MEDS: PANTOPRAZOLE 40 MG TABLET PO SCH (08:27)
[2019-03-11] MEDS: CITALOPRAM HYDROBROMIDE 20 MG TAB PO SCH (08:27)
[2019-03-11] MEDS: MULTIVITAMINS, THERA 1 EACH TAB PO SCH (08:27)
[2019-03-11] MEDS: LOSARTAN-HCTZ 50-12.5 MG 1 EACH TAB PO SCH (08:28)
[2019-03-11] MEDS: DOCUSATE 100 MG CAP PO PRN (08:39)
--- NOTE | 2019-03-11 10:40 | P.PN ---
Progress Note - Text Progress Note Date: 03/11/19 The patient is seen and examined at bedside. She is ambulatory with her daughter in the room. She says that she has been doing better and the pain is better controlled with oral medications today. She says the pain is ran a 4 out of 10 with oral medications which is somewhat manageable for her. She denies any new weakness. On exam she is afebrile. She has sustained dorsiflexion plantar flexion and EHL intact. The calf soft nontender. Assessment and plan Intractable low back pain which is improving Right lower extremity pain which is improving Severe spinal stenosis L3 4 L4 5 Lower extremity radiculopathy The patient has made some progress with her medication and epidural steroid injection. She has been more mobile today and she feels comfortable with going home with oral medication. Interventional pain management has done procedure on her and I would defer medical management and pain medicine per interventional pain management or per her primary for now. I would follow her up in the couple of weeks for recheck evaluation and consider the possibility of surgical intervention if her symptoms do not improve with further interventional pain management. If she were to undergo surgery in the future then we can manage her medication for pain.
[2019-03-11] MEDS: SODIUM CHLORIDE 0.9% 1,000 ML IV SCH (11:23)
== END 2019-03-11 13:29 | disposition home or self-care (01) | DRG 552 ==
LOC: EC 16:07 → 4MS4W 17:40 → OBSVTOIN 03-09 15:11
PROVIDERS: ADMIT Hospitalist; ATTEND Hospitalist
PROC: 3E0R3BZ Introduction of Anesthetic Agent into Spinal Canal, Percutaneous Approach (ICD-10-PCS; 2019-03-09)
PROC: B01B1ZZ Fluoroscopy of Spinal Cord using Low Osmolar Contrast (ICD-10-PCS; 2019-03-09)
PROC: 3E0R33Z Introduction of Anti-inflammatory into Spinal Canal, Percutaneous Approach (ICD-10-PCS; principal; 2019-03-09 10:00)
DX: M48.061 Spinal stenosis, lumbar region without neurogenic claudication (principal); D53.9 Nutritional anemia, unspecified; I10 Essential (primary) hypertension; R73.9 Hyperglycemia, unspecified; T38.0X5A Adverse effect of glucocorticoids and synthetic analogues, initial encounter; R26.9 Unspecified abnormalities of gait and mobility; F41.9 Anxiety disorder, unspecified; F32.9 Major depressive disorder, single episode, unspecified; I25.10 Atherosclerotic heart disease of native coronary artery without angina pectoris; Z79.82 Long term (current) use of aspirin; Z79.899 Other long term (current) drug therapy; Z90.49 Acquired absence of other specified parts of digestive tract; Z90.710 Acquired absence of both cervix and uterus; Z95.5 Presence of coronary angioplasty implant and graft; Z88.5 Allergy status to narcotic agent; Z88.2 Allergy status to sulfonamides; M47.26 Other spondylosis with radiculopathy, lumbar region; M51.16 Intervertebral disc disorders with radiculopathy, lumbar region
CPT/HCPCS: 36415; 64483; 71045; 72148; 80048; 80053; 81001; 82550; 83735; 85025; 85652; 86140; 96361; 96374; 96375; 99285

== ENCOUNTER → 2019-03-22 | Outpatient (CLI) | payer MEDICARE ==
[2019-03-22 11:29] VITALS: BP 167/76; PULSE 68; RESP 16
--- NOTE | 2019-03-23 09:26 | P.PAINPG ---
Subjective Progress Note Date: 03/22/19 This is a follow-up visit for this patient with a history of significant low back pain with radiation to the right lower extremity, she steakhouse with lumbar radiculopathy, lumbar degenerative disc disease and lumbar facet arthropathy, we have done right-sided transforaminal epidural steroid injection at L4-L5 level, she'll continue to have severe low back pain, the pain interferes with the quality of life she continues to use Colp 5/325 every 4 hours and Flexeril when necessary, she denies any side effect of the medication Objective - Vital Signs Vital signs: Vital Signs Temp Pulse 68 03/22/19 11:15 Resp 16 03/22/19 11:15 BP 167/76 03/22/19 11:15 Pulse Ox 97 03/22/19 11:15 Intake & Output 03/22/19 03/23/19 03/23/19 18:59 06:59 18:59 Weight 68.039 kg - Exam Physical Examinations : -Constitutiona : Cooperative , not in acute distress . -HEENT : nech : supple , no Lymphadenopathy , normal t hyroid size . eyes : no ptosis , no icterus, no photophobia . - neurologic : Cranial nerve II to XII intact , no focal neurological deffecit . -psychatric : alert , oriented X 3 , appropriate affect , intact judgment and insight . -Lymphatic : no Lymphadenopathy . - musculoskeltal : Lumber spine moter stegnth lower extremities ,thigh and legs 4/5 Right side , 5/5 Left side deep tendon reflexes : normal Knee Jerk , normal ankle Jerk positive lumber facet Loading Test Range of motion of the lumbar spine Flexion 30 degrees, extension 10 degrees strait leg raising test , positive at 45 degree on the right side, and negative on the left side Fabere test positive RT and positive LT . Sever tenderness over the Sacroiliac joint on the Right side Gaenslen test positive on the right side. Seated flexion test positive on the right side. MRI of the lumbar spine L2-3 disc protrusion with facet arthropathy L3 4 facet degeneration and foraminal narrowing L4 5 disc protrusion and facet degeneration, L5-S1 disc protrusion Assessment and Plan Plan: Assessment and plan=1-lumbar radiculopathy.. 2-lumbar degenerative disc disease . 3-lumbar spondylosis with lumbar facet arthropathy Patient continued to have severe low back pain after transforaminal epidural steroid injection at L4 5 level. Patient will be good candidate to have lumbar epidural steroid injection at L3 4 level and right-sided paramedian approach. Procedure risk and benefits and alternatives discussed with the patient and her daughter and they agreed with proceeding PQRS Measure Charge Sheet Measure #130: Documentation of Current Meds in Medical Chart: Patient's medications documented in chart Measure #226: Tobacco Use: Screen & Cessation Intervention: Pt not a tobacco user Measure #111: Pneumonia Vaccination: Pneumococcal vaccine administered or previously received Measure #47: Advance Care Plan: Advance care planning discussed & documented, pt chose/unable to give Measure #412: Opioid Treatment Agreement: No documentation of signed opioid treatment agreement Measure #408: Opioid Therapy Follow-up Evaluation: Patient had NO f/u eval minimum every 3 months during opioid therapy Measure #317: Preventitive Care & Scrn High Bld Press & F/U: Pre-hypertensive or hypertensive BP documented, pt will f/u with PCP Measure #128: Body Mass Index (BMI) Screening & Follow-up: BMI documented ABOVE normal parameters - f/u documented Measure #131: Pain Assessment & Follow-up: Pain positive & plan documented, Follow-up scheduled Measure #431: Unhealthy Alcohol Use Preventative Care & Scrn: Patient not identified as an unhealthy alcohol user PQRS Narrative: Smoking Status Never smoker Blood Pressure 167/76 Pain Intensity [Right Lower 8 Back] Scale Used Numeric (1 - 10) Hx Alcohol Use (MH) No Home Medications: Ambulatory Orders Acetaminophen Tab [Tylenol] 325 mg PO BID 03/07/19 Aspirin 325 mg PO DAILY 03/07/19 Cholecalciferol [Vitamin D3 (25 Mcg = 1000 Iu)] 1,000 unit PO DAILY 03/07/19 Citalopram Hydrobromide [CeleXA] 20 mg PO DAILY 03/07/19 Diazepam [Valium] 2.5 mg PO HS 03/07/19 HYDROcodone/APAP 5-325MG [Colp 5-325] 1 tab PO Q4HR PRN 03/07/19 LORazepam [Ativan] 0.5 mg PO DAILY 03/07/19 Loperamide HCl [Loperamide] 2 mg PO DAILY PRN 03/07/19 Losartan-Hctz 50-12.5 mg [Hyzaar 50-12.5] 1.5 tab PO DAILY 03/07/19 Multivitamin [Multivitamins Adult Gummies] 1 tab PO DAILY 03/07/19 [place]-3 Fatty Acids/Fish Oil [Fish Oil 1,000 mg Softgel] 1 cap PO DAILY 03/07/19 [place] Colon 10mg 10 mg PO DAILY 03/07/19 lamoTRIgine [LaMICtal] 25 mg PO HS 03/07/19 Cyclobenzaprine [Flexeril] 10 mg PO TID PRN 7 Days #21 tab 03/11/19 Controlled Substance Measures - Controlled Substance Measures Is patient prescribed a controlled substance at discharge?: No
== END | disposition home or self-care (01) ==
LOC: PNWHC3 10:55
PROVIDERS: ATTEND Specialist
DX: M51.16 Intervertebral disc disorders with radiculopathy, lumbar region (principal); M47.26 Other spondylosis with radiculopathy, lumbar region; M46.96 Unspecified inflammatory spondylopathy, lumbar region; Z79.899 Other long term (current) drug therapy; Z79.82 Long term (current) use of aspirin; Z79.891 Long term (current) use of opiate analgesic
CPT/HCPCS: 99211

== ENCOUNTER 2019-03-23 08:22 | Day surgery (SDC) | payer MEDICARE ==
[~2019-03-23 08:22] MED LIST: LACTATED RINGERS 1,000 ML IV SCH
[2019-03-23 09:19] VITALS: RESP 18; TEMP 97.4
[2019-03-23] MEDS ORDERED: LACTATED RINGERS 1,000 ML IV ONE (09:21)
[2019-03-23] MEDS ORDERED: LIDOCAINE 1% 20 ML VIAL (10MG/ML) FOR IV START INTRADERMA ONE (09:21)
--- NOTE | 2019-03-23 10:33 | P.PCN ---
Date of Procedure: 03/23/19 Procedure(s) Performed: PREOPERATIVE DIAGNOSIS: 1- Lumbar Degenerative Disc Diseases 2-Lumbar spondylosis with Facet arthropathy without myelopathy 3-lumbar radiculopathy POSTOPERATIVE DIAGNOSIS: 1-Lumber Degenerative Disc Diseases 2-Lumbar spondylosis with Facet arthropathy without myelopathy 3-lumbar radiculopathy PROCEDURE 1. Lumbar epidural steroid injection under fluoroscopic guidance at the L3-4 level. (Fluoroscopy imaging was available in radiology department) 2. Lumbar epidurogram. ANESTHESIA: Local with 1% lidocaine 3 ml and , moderate sedation with intravenous Versed 1 mg ,and fentanyle 50 Mcg EBL: Minimal PROCEDURE INDICATION: The patient with low back pain and radiculitis symptoms unresponsive to conservative treatment. Fluoroscopy was used to optimize visualization of the needle placement and to maximize safety. PROCEDURE DESCRIPTION / TECHNIQUE: The patient was seen and identified in the preoperative area. Risks, benefits, complications including but not limited to infections ,bleeding ,allergic reaction to the medications ,nerve damage and not complete pain releife , and alternatives were discussed with the patient. The patient agreed to proceed with the procedure and signed the consent. IV was started, and vital signs were s table. Patient was taken to the OR and time out was completed. The patient was placed in the prone position on procedure table and a pillow was placed under the abdomen to reduce lumbar lordosis. The lumbosacral area was prepped and draped in the usual sterile fashion.ere closely monitored during the procedure. Conscious sedation was used during the procedure to decrease patients anxiety. Vital signs was monitered during the entire procedure. Using anterior-posterior fluoroscopy, the L3-4 interlaminar space was identified and the skin over this site was marked and then infiltrated with 1% lidocaine subcutaneously. Subsequently, a 20-gauge Tuohy epidural needle was inserted and advanced toward the epidural space using the ``Loss of resistance technique and guided by AP and lateral fluoroscopy. The correct needle position in the epidural space was verified with the injection of 2 mL of the water soluble contrast dye Isovue 200 contrast and observing an excellent epidurogram with the epidural spread of the dye, after negative aspiration for blood and CSF and in the absence of paresthesias. Again after negative aspiration, a 6 ml mixture containing 40 mg of Depo-medrol , and 2 ml of preservative free Normal Saline, and 2 ml of preservative free lidocaine 1% solution was injected and a washout of epidurogram was seen. Needle was withdrawn intact, skin was cleansed, and ban dages were applied. COMPLICATIONS: None DISPOSITION / PLANS: The patient was placed in a supine position and transferred to the recovery area in a stable condition for observation. There was no evide nce of lower extremity motor or sensory deficit after the procedure. Patient was discharged from the recovery room after meeting discharge criteria. Home discharge instructions were given to the patient by the staff. The patient was reexamined prior to discharge. The patient will schedule a follow up in the clinic in 2-4 weeks.
[2019-03-23 11:03] VITALS: BP 148/82; PULSE 73
[2019-03-23] MEDS ORDERED: IV FLUID CONTINUATION 1,000 ML IV ONE (11:06)
--- NOTE | 2019-03-23 11:27 | FL ---
Fluoroscopy HISTORY: Pain 21 seconds fluoroscopy time supplied to the referring clinician. 1 intraoperative C-arm images docum ent the procedure. See dictated report from anesthesia.
== END 2019-03-23 11:19 | disposition home or self-care (01) ==
LOC: ORPAIN 08:22
PROVIDERS: ATTEND Specialist
DX: M47.26 Other spondylosis with radiculopathy, lumbar region (principal); M51.16 Intervertebral disc disorders with radiculopathy, lumbar region; I10 Essential (primary) hypertension; F32.9 Major depressive disorder, single episode, unspecified; Z88.2 Allergy status to sulfonamides; Z88.5 Allergy status to narcotic agent; Z95.5 Presence of coronary angioplasty implant and graft; Z90.49 Acquired absence of other specified parts of digestive tract; Z90.710 Acquired absence of both cervix and uterus; Z79.82 Long term (current) use of aspirin; Z79.899 Other long term (current) drug therapy; Z82.49 Family history of ischemic heart disease and other diseases of the circulatory system
CPT/HCPCS: 62323; J2250; J1030; J3010; Q9966; 99152

== ENCOUNTER → 2019-04-24 | Day surgery (SDC) | payer MEDICARE ==
[2019-04-20 13:30] VITALS: BMI 27.4
[~2019-04-24] MED LIST changes: +LIDOCAINE 1% 20 ML VIAL (10MG/ML) FOR IV START INTRADERMA ONE
[2019-04-24 06:24] VITALS: TEMP 97.8
--- NOTE | 2019-04-24 07:20 | P.PCN ---
Date of Procedure: 04/24/19 Procedure(s) Performed: PREOPERATIVE DIAGNOSIS: 1- Lumbar Degenerative Disc Diseases 2-Lumbar spondylosis with Facet arthropathy without myelopathy 3-lumbar radiculopathy POSTOPERATIVE DIAGNOSIS: 1-Lumber Degenerative Disc Diseases 2-Lumbar spondylosis with Facet arthropathy without myelopathy 3-lumbar radiculopathy PROCEDURE 1. Lumbar epidural steroid injection under fluoroscopic guidance at the L3-4 level. (Fluoroscopy imaging was available in radiology department) 2. Lumbar epidurogram. ANESTHESIA: Local with 1% lidocaine 3 ml and , moderate sedation with intravenous Versed 1 mg ,and fentanyle 50 Mcg EBL: Minimal PROCEDURE INDICATION: The patient with low back pain and radiculitis symptoms unresponsive to conservative treatment. Fluoroscopy was used to optimize visualization of the needle placement and to maximize safety. PROCEDURE DESCRIPTION / TECHNIQUE: The patient was seen and identified in the preoperative area. Risks, benefits, complications including but not limited to infections ,bleeding ,allergic reaction to the medications ,nerve damage and not complete pain releife , and alternatives were discussed with the patient. The patient agreed to proceed with the procedure and signed the consent. IV was started, and vital signs were stable. Patient was taken to the OR and time out was completed. The patient was placed in the prone position on procedure table and a pillow was placed under the abdomen to reduce lumbar lordosis. The lumbosacral area was prepped and draped in the usual sterile fashion.ere closely monitored during the procedure. Conscious sedation was used during the procedure to decrease patients anxiety. Vital signs was monitered during the entire procedure. Using anterior-posterior fluoroscopy, the L3-4 interlaminar space was identified and the skin over this site was marked and then infiltrated with 1% lidocaine subcutaneously. Subsequently, a 20-gauge Tuohy epidural needle was inserted and advanced toward the epidural space using the ``Loss of resistance technique and guided by AP and lateral fluoroscopy. The correct needle position in the epidural space was verified with the injection of 2 mL of the water soluble contrast dye Isovue 200 contrast and observing an excellent epidurogram with the epidural spread of the dye, after negative aspiration for blood and CSF and in the absence of paresthesias. Again after negative aspiration, a 6 ml mixture containing 40 mg of Depo-medrol , and 2 ml of preservative free Normal Saline, and 2 ml of preservative free lidocaine 1% solution was injected and a washout of epidurogram was seen. Needle was withdrawn intact, skin was cleansed, and bandages were applied. COMPLICATIONS: None DISPOSITION / PLANS: The patient was placed in a supine position and transferred to the recovery area in a stable condition for observation. There was no evidence of lower extremity motor or sensory deficit after the procedure. Patient was discharged from the recovery room after meeting discharge criteria. Home discharge instructions were given to the patient by the staff. The patient was reexamined prior to discharge. The patient will schedule a follow up in the clinic in 2-4 weeks.
[2019-04-24 07:30] VITALS: RESP 17
[2019-04-24 07:36] VITALS: BP 145/72; PULSE 72
--- NOTE | 2019-04-24 07:46 | FL ---
Fluoroscopy INDICATION: Pain FINDINGS: Fluoroscopy time: 8 seconds. Images obtained: 1. IMPRESSIONS: 1. Documentation of fluoroscopy.
== END ==
LOC: ORPAIN 05:44
PROVIDERS: ATTEND Specialist
DX: M47.26 Other spondylosis with radiculopathy, lumbar region (principal); M51.16 Intervertebral disc disorders with radiculopathy, lumbar region; I10 Essential (primary) hypertension; Z88.2 Allergy status to sulfonamides; Z88.5 Allergy status to narcotic agent
CPT/HCPCS: 62323; J2250; J1030; J3010; Q9966; 99152

== ENCOUNTER → 2019-05-15 | Outpatient (CLI) | payer MEDICARE ==
[2019-05-15 14:30] VITALS: BP 178/90; PULSE 75; RESP 16
--- NOTE | 2019-05-18 07:35 | P.PAINPG ---
Subjective Progress Note Date: 05/15/19 This is a follow-up visit for this patient with a history of significant low back pain with radiation to the right lower extremity, she has been diagnosed with lumbar radiculopathy, lumbar degenerative disc disease and lumbar facet arthropathy, we have done rlumbar epidural steroid injections 2 on 03/23/2019 and 04/24/2019. She returns today for follow-up. She reports that her pain has been essentially gone since the prior procedure. She has been continuing to do her daily exercises and walking.Her pain is 0/10. She does state that she has been feeling off balance for about 10 days since starting Crestor. Review of systems is negative for chest pain, shortness of breath, new onset weakness, numbness/tingling, abdominal pain, malaise, fever, night sweats, chills, homicidal or suicidal ideation, or bowel or bladder incontinence. Physical exam: Vitals: Reviewed in EMR GENERAL: Well appearing, in no acute distress PSYCH: Mood and affect is appropriate. Awake, alert, and oriented SKIN: Skin color, texture, turgor normal, no rashes or lesions HEENT: Normocephalic, atraumatic. EOM intact CV: No pedal edema RESP: Respirations are unlabored, no audible wheezing GI: Abdomen non-distended MUSCULOSKELETAL: Bilateral lower extremity strength is normal and symmetric. No atrophy or tone abnormalities are noted. Lumbar spine: Straight leg raising in the sitting position is negative for radicular pain. No pain to palpation over the lumbar spine and paraspinous muscles. Negative for pain with facet loading and back extension/rotation. Normal range of motion without pain reproduction Buttocks: No pain to palpation over the PSIS, sacroiliac joint maneuvers are negative for pain. Extremities: Peripheral joint ROM is full and pain free without obvious instability or laxity in all four extremities. No edema or skin discolorations noted. Gait: Gait is normal NEUR: Bilateral lower extremity coordination and muscle stretch reflexes are physiologic and symmetric. Negative clonus bilaterally. No loss of sensation is noted. imaging:MRI of the lumbar spine L2-3 disc protrusion with facet arthropathy L3 4 facet degeneration and foraminal narrowing L4 5 disc protrusion and facet degeneration, L5-S1 disc protrusion Assessment and Plan Plan: Assessment and plan= 1-lumbar radiculopathy.. 2-lumbar degenerative disc disease . 3-lumbar spondylosis with lumbar facet arthropathy Patient had excellent benefit from lumbar epidural steroid injection at L3 4 level , currently is not having any pain. I asked her to have a discussion with her primary care physician regarding cluster use and instability. patient was given an exercise handout for low back exercises and core exercises. Follow-up: When necessary PQRS Measure Charge Sheet Measure #130: Documentation of Current Meds in Medical Chart: Patient's medications documented in chart Measure #226: Tobacco Use: Screen & Cessation Intervention: Pt not a tobacco user Measure #111: Pneumonia Vaccination: Pneumococcal vaccine administered or previously received Measure #47: Advance Care Plan: Advance care planning discussed & documented, pt chose/unable to give Measure #412: Opioid Treatment Agreement: No documentation of signed opioid treatment agreement Measure #408: Opioid Therapy Follow-up Evaluation: Patient had NO f/u eval minimum every 3 months during opioid therapy Measure #317: Preventitive Care & Scrn High Bld Press & F/U: Pre-hypertensive or hypertensive BP documented, pt will f/u with PCP Measure #128: Body Mass Index (BMI) Screening & Follow-up: BMI documented Within normal parameters Measure #131: Pain Assessment & Follow-up: Pain negative, follow-up when necessary Measure #431: Unhealthy Alcohol Use Preventative Care & Scrn: Patient not identified as an unhealthy alcohol user Objective - Vital Signs Vital signs: Vital Signs Temp Pulse 75 05/15/19 14:14 Resp 16 05/15/19 14:14 BP 178/90 05/15/19 14:14 Pulse Ox 99 05/15/19 14:14 PQRS Measure Charge Sheet PQRS Narrative: Smoking Status Never smoker Blood Pressure 178/90 Pain Intensity [Back] 0 Scale Used Numeric (1 - 10) Hx Alcohol Use (MH) Yes: RARE Home Medications: Ambulatory Orders Acetaminophen Tab [Tylenol] 650 mg PO BID PRN 03/07/19 Cholecalciferol [Vitamin D3 (25 Mcg = 1000 Iu)] 1,000 unit PO DAILY 03/07/19 Citalopram Hydrobromide [CeleXA] 20 mg PO DAILY 03/07/19 Diazepam [Valium] 2.5 mg PO DAILY 03/07/19 Losartan-Hctz 50-12.5 mg [Hyzaar 50-12.5] 1 tab PO DAILY 03/07/19 Multivitamin [Multivitamins Adult Gummies] 1 tab PO DAILY 03/07/19 [place]-3 Fatty Acids/Fish Oil [Fish Oil 1,000 mg Softgel] 1,200 mg pe PO DAILY 03/07/19 [place] Colon 10mg 10 mg PO DAILY 03/07/19 lamoTRIgine [LaMICtal] 25 mg PO HS 03/07/19 Aspirin [Adult Low Dose Aspirin EC] 81 mg PO DAILY 04/20/19 LORazepam [Ativan] 0.5 mg PO HS 04/20/19 Potassium Chloride ER [K-Dur 10] 10 meq PO DAILY 05/11/19 Rosuvastatin [Crestor] 10 mg PO DAILY 05/11/19 Controlled Substance Measures - Controlled Substance Measures Is patient prescribed a controlled substance at discharge?: No
== END | disposition home or self-care (01) ==
LOC: PNWHC3 13:25
PROVIDERS: ATTEND Anesthesiology
DX: M51.16 Intervertebral disc disorders with radiculopathy, lumbar region (principal); M47.26 Other spondylosis with radiculopathy, lumbar region; M46.96 Unspecified inflammatory spondylopathy, lumbar region; Z79.891 Long term (current) use of opiate analgesic; Z79.899 Other long term (current) drug therapy; Z79.82 Long term (current) use of aspirin
CPT/HCPCS: 99211

== ENCOUNTER → 2019-11-01 | Outpatient (CLI) | payer MEDICARE ==
--- NOTE | 2019-11-01 09:02 | P.PAINPG ---
Subjective Progress Note Date: 11/01/19 Seen via telemedicine visit today. She has been doing well until October 08 when her foot began to hurt. She was seen by her PCP who gave her a sub q cortizone injection. It didnt help much for about a week. She is doing well now, pain is under control with VAS 3/10. She is able to walk up stairs, no issues with movement. Still exercising daily. Using over the counter meds for pain. Tylenol she used caused Reflux. Objective - Exam GENERAL: Awake, alert, oriented, no distress HENT: atraumatic, normocephalic, trachea midline, nose midline RESP: NO audible wheezing, no coughing CARDIO: Reg rate (per patient palpation), no edema ABDOMEN: Non tender (per patient), no distension CERVICAL SPINE: Range of motion preserved, Spurling Negative LUMBAR SPINE: Limited range of motion secondary to pain, pain with flexion and extension of the Lumbar spine. NEURO: Gait is Normal, Sensation in Lower ext normal (per patient) PSYCH: Cooperative, normal affect. Assessment and Plan Assessment: Lumbar DDD lumbar radiculopathy Plan: At this point, we will not repeat the injection now since she is not having pain. We will schedule an GÉNESIS in 4-6 weeks, if she is not having pain we will cancel at the time. PQRS Measure Charge Sheet Measure #130: Documentation of Current Meds in Medical Chart: Patient's medications documented in chart Measure #226: Tobacco Use: Screen & Cessation Intervention: Pt not a tobacco user Measure #111: Pneumonia Vaccination: Pneumococcal vaccine administered or previously received Measure #47: Advance Care Plan: Advance care planning discussed & documented, plan or surrogate given Measure #412: Opioid Treatment Agreement: No documentation of signed opioid treatment agreement Measure #408: Opioid Therapy Follow-up Evaluation: Patient had NO f/u eval minimum every 3 months during opioid therapy Measure #317: Preventitive Care & Scrn High Bld Press & F/U: Blood pressure not documented, patient not eligible Measure #128: Body Mass Index (BMI) Screening & Follow-up: BMI documented within normal parameters Measure #131: Pain Assessment & Follow-up: Pain positive & plan documented Measure #431: Unhealthy Alcohol Use Preventative Care & Scrn: Patient not identified as an unhealthy alcohol user PQRS Narrative: Smoking Status Never smoker Pain Intensity [Lower Back] 0 Scale Used Numeric (1 - 10) Hx Alcohol Use (MH) Yes: RARE Home Medications: Ambulatory Orders Acetaminophen Tab [Tylenol] 650 mg PO BID PRN 03/07/19 Cholecalciferol [Vitamin D3 (25 Mcg = 1000 Iu)] 1,000 unit PO DAILY 03/07/19 Citalopram Hydrobromide [CeleXA] 20 mg PO DAILY 03/07/19 Diazepam [Valium] 2.5 mg PO DAILY 03/07/19 Losartan-Hctz 50-12.5 mg [Hyzaar 50-12.5] 1 tab PO DAILY 03/07/19 Multivitamin [Multivitamins Adult Gummies] 2 tab PO DAILY 03/07/19 [place]-3 Fatty Acids/Fish Oil [Fish Oil 1,000 mg Softgel] 1,200 mg pe PO DAILY 03/07/19 [place] Colon 10mg 10 mg PO DAILY 03/07/19 lamoTRIgine [LaMICtal] 25 mg PO HS 03/07/19 Aspirin [Adult Low Dose Aspirin EC] 81 mg PO DAILY 04/20/19 LORazepam [Ativan] 0.5 mg PO HS 04/20/19 Potassium Chloride ER [K-Dur 10] 10 meq PO DAILY 05/11/19 Controlled Substance Measures - Controlled Substance Measures Is patient prescribed a controlled substance at discharge?: No
== END | disposition home or self-care (01) ==
LOC: PNWHC3 06:59
PROVIDERS: ATTEND Hospitalist
DX: Z53.9 Procedure and treatment not carried out, unspecified reason (principal)

== ENCOUNTER 2019-12-07 07:05 | Day surgery (SDC) | payer MEDICARE ==
[2019-12-05 08:40] VITALS: BMI 27.4
[~2019-12-07 07:05] MED LIST changes: -LIDOCAINE 1% 20 ML VIAL (10MG/ML) FOR IV START INTRADERMA ONE
[2019-12-07] MEDS ORDERED: MIDAZOLAM 2 MG/2 ML VIAL ONE (08:12)
[2019-12-07] MEDS ORDERED: IOPAMIDOL M200 10 ML VIAL ONE (08:12)
[2019-12-07] MEDS ORDERED: methylPREDNISolone ACETATE 40 MG/ML 1 ML VIAL ONE (08:12)
[2019-12-07] MEDS ORDERED: fentaNYL (PF) 50 MCG/ML 2 ML AMP ONE (08:12)
--- NOTE | 2019-12-07 08:28 | P.PCN ---
Date of Procedure: 12/07/19 Procedure(s) Performed: PREOPERATIVE DIAGNOSIS: 1- Lumbar Degenerative Disc Diseases 2-Lumbar spondylosis with Facet arthropathy without myelopathy 3-lumbar radiculopathy POSTOPERATIVE DIAGNOSIS: 1-Lumber Degenerative Disc Diseases 2-Lumbar spondylosis with Facet arthropathy without myelopathy 3-lumbar radiculopathy PROCEDURE 1. Lumbar epidural steroid injection under fluoroscopic guidance at the L3-4 level. (Fluoroscopy imaging was available in radiology department) 2. Lumbar epidurogram. ANESTHESIA: Local with 1% lidocaine 3 ml and , moderate sedation with intravenous Versed 1 mg ,and fentanyle 50 Mcg EBL: Minimal PROCEDURE INDICATION: The patient with low back pain and radiculitis symptoms unresponsive to conservative treatment. Fluoroscopy was used to optimize visualization of the needle placement and to maximize safety. PROCEDURE DESCRIPTION / TECHNIQUE: The patient was seen and identified in the preoperative area. Risks, benefits, complications including but not limited to infections ,bleeding ,allergic reaction to the medications ,nerve damage and not complete pain releife , and alternatives were discussed with the patient. The patient agreed to proceed with the procedure and signed the consent. IV was started, and vital signs were stable. Patient was taken to the OR and time out was completed. The patient was placed in the prone position on procedure table and a pillow was placed under the abdomen to reduce lumbar lordosis. The lumbosacral area was prepped and draped in the usual sterile fashion.ere closely monitored during the procedure. Conscious sedation was used during the procedure to decrease patients anxiety. Vital signs was monitered during the entire procedure. Using anterior-posterior fluoroscopy, the L3-4 interlaminar space was identified and the skin over this site was marked and then infiltrated with 1% lidocaine subcutaneously. Subsequently, a 20-gauge Tuohy epidural needle was inserted and advanced toward the epidural space using the ``Loss of resistance technique and guided by AP and lateral fluoroscopy. The correct needle position in the epidural space was verified with the injection of 2 mL of the water soluble contrast dye Isovue 200 contrast and observing an excellent epidurogram with the epidural spread of the dye, after negative aspiration for blood and CSF and in the absence of paresthesias. Again after negative aspiration, a 6 ml mixture containing 40 mg of Depo-medrol , and 2 ml of preservative free Normal Saline, and 2 ml of preservative free lidocaine 1% solution was injected and a washout of epidurogram was seen. Needle was withdrawn intact, skin was cleansed, and bandages were applied. COMPLICATIONS: None DISPOSITION / PLANS: The patient was placed in a supine position and transferred to the recovery area in a stable condition for observation. There was no evidence of lower extremity motor or sensory deficit after the procedure. Patient was discharged from the recovery room after meeting discharge criteria. Home discharge instructions were given to the patient by the staff. The patient was reexamined prior to discharge. The patient will schedule a follow up in the clinic in 2-4 weeks.
[2019-12-07] MEDS ORDERED: IV FLUID CONTINUATION 1,000 ML IV ONE ×2 (08:33)
--- NOTE | 2019-12-07 10:26 | FL ---
Fluoroscopy HISTORY: Pain 4 seconds fluoroscopy time supplied to the referring clinician. 1 intraoperative C-arm images docume nt the procedure. See dictated report from anesthesia.
[2019-12-08 09:55] VITALS: BP 159/72; PULSE 63; RESP 16; TEMP 97.3
== END 2019-12-07 09:08 | disposition home or self-care (01) ==
LOC: ORPAIN 07:05
PROVIDERS: ATTEND Specialist
DX: M47.26 Other spondylosis with radiculopathy, lumbar region (principal); M51.16 Intervertebral disc disorders with radiculopathy, lumbar region; Z88.2 Allergy status to sulfonamides; Z88.5 Allergy status to narcotic agent; Z79.82 Long term (current) use of aspirin
CPT/HCPCS: 62323; J2250; J1030; J3010; Q9966; 99152

== ENCOUNTER → 2019-12-27 | Outpatient (CLI) | payer MEDICARE ==
[2019-12-27 10:16] VITALS: BP 158/68; PULSE 73; RESP 16
--- NOTE | 2019-12-27 10:22 | P.PAINPG ---
Subjective Progress Note Date: 12/27/19 This is a follow-up visit for this patient with a history of significant low back pain with radiation to the right lower extremity, she has been diagnosed with lumbar radiculopathy, lumbar degenerative disc disease and lumbar facet arthropathy, we have recently done lumbar epidural steroid injections at L3-4 on 12/07/2019. She returns today for follow-up. She reports excellent pain relief from this procedure, her pain in her legs is essentially gone. She does endorse mild low back pain rated as 2/10, described as aching. Pain is worse with bending and twisting movements as well as vacuuming and better with exercise, injections and using a back brace as well as ice. She continues to exercise, including low back exercises she also rides a bike2 miles a day. Review of systems is negative for chest pain, shortness of breath, new onset weakness, numbness/tingling, abdominal pain, malaise, fever, night sweats, chills, homicidal or suicidal ideation, or bowel or bladder incontinence. Physical exam: Vitals: Reviewed in EMR GENERAL: Well appearing, in no acute distress PSYCH: Mood and affect is appropriate. Awake, alert, and oriented SKIN: Skin color, texture, turgor normal, no rashes or lesions HEENT: Normocephalic, atraumatic. EOM intact CV: No pedal edema RESP: Respirations are unlabored, no audible wheezing GI: Abdomen non-distended MUSCULOSKELETAL: Bilateral lower extremity strength is normal and symmetric. No atrophy or tone abnormalities are noted. Lumbar spine: Straight leg raising in the sitting position is negative for radicular pain. No pain to palpation over the lumbar spine and paraspinous muscles. Negative for pain with facet loading and back extension/rotation. Normal range of motion without pain reproduction Buttocks: No pain to palpation over the PSIS Extremities: Peripheral joint ROM is full and pain free without obvious instability or laxity in all four extremities. No edema or skin discolorations noted. Gait: Gait is normal NEUR: No loss of sensation is noted. imaging:MRI of the lumbar spine L2-3 disc protrusion with facet arthropathy L3 4 facet degeneration and foraminal narrowing L4 5 disc protrusion and facet degeneration, L5-S1 disc protrusion Assessment and Plan Plan: Assessment and plan= 1-lumbar radiculopathy.. 2-lumbar degenerative disc disease . 3-lumbar spondylosis with lumbar facet arthropathy Patient had excellent benefit from lumbar epidural steroid injection at L3 4 level , currently is not having any pain. Follow-up: When necessary PQRS Measure Charge Sheet Measure #130: Documentation of Current Meds in Medical Chart: Patient's medications documented in chart Measure #226: Tobacco Use: Screen & Cessation Intervention: Pt not a tobacco user Measure #111: Pneumonia Vaccination: Pneumococcal vaccine administered or previously received Measure #47: Advance Care Plan: Advance care planning discussed & documented, pt chose/unable to give Measure #412: Opioid Treatment Agreement: No documentation of signed opioid treatment agreement Measure #408: Opioid Therapy Follow-up Evaluation: Patient had NO f/u eval minimum every 3 months during opioid therapy Measure #317: Preventitive Care & Scrn High Bld Press & F/U: Pre-hypertensive or hypertensive BP documented, pt will f/u with PCP Measure #128: Body Mass Index (BMI) Screening & Follow-up: BMI documented ABOVE normal parameters - f/u documented Measure #131: Pain Assessment & Follow-up: Pain positive & plan documented, Follow-up PRN Measure #431: Unhealthy Alcohol Use Preventative Care & Scrn: Patient not id entified as an unhealthy alcohol user PQRS Narrative: Smoking Status Never smoker Pain Intensity [Back] 2 Scale Used Numeric (1 - 10) Hx Alcohol Use (MH) Yes: RARE Home Medications: Ambulatory Orders Acetaminophen Tab [Tylenol] 650 mg PO BID PRN 03/07/19 Cholecalciferol [Vitamin D3 (25 Mcg = 1000 Iu)] 1,000 unit PO DAILY 03/07/19 Citalopram Hydrobromide [CeleXA] 20 mg PO DAILY 03/07/19 Losartan-Hctz 50-12.5 mg [Hyzaar 50-12.5] 1 tab PO DAILY 03/07/19 Multivitamin [Multivitamins Adult Gummies] 2 tab PO DAILY 03/07/19 Terry-3 Fatty Acids/Fish Oil [Fish Oil 1,000 mg Softgel] 1,200 mg pe PO DAILY 03/07/19 Horne Colon 10mg 10 mg PO DAILY 03/07/19 diazePAM [Valium] 2.5 mg PO DAILY 03/07/19 lamoTRIgine [LaMICtal] 25 mg PO HS 03/07/19 Aspirin [Adult Low Dose Aspirin EC] 81 mg PO DAILY 04/20/19 LORazepam [Ativan] 0.5 mg PO HS 04/20/19 Potassium Chloride ER [K-Dur 10] 10 meq PO DAILY 05/11/19 Controlled Substance Measures - Controlled Substance Measures Is patient prescribed a controlled substance at discharge?: No
== END | disposition home or self-care (01) ==
LOC: PNWHC3 08:51
PROVIDERS: ATTEND Anesthesiology
DX: G89.29 Other chronic pain (principal); M51.16 Intervertebral disc disorders with radiculopathy, lumbar region; M47.26 Other spondylosis with radiculopathy, lumbar region; Z79.82 Long term (current) use of aspirin; Z79.899 Other long term (current) drug therapy
CPT/HCPCS: 99211

== ENCOUNTER → 2021-01-08 | Outpatient (CLI) | payer MEDICARE ==
[2021-01-08 13:02] VITALS: BP 151/74; PULSE 80; RESP 18; TEMP 97.6
--- NOTE | 2021-01-08 13:17 | P.PN ---
Subjective Progress Note Date: 01/08/21 This is a follow-up visit for this patient with a history of sever low back pain with radiation to the right lower extremity, she is Diagnosed with lumbar radiculopathy, lumbar degenerative disc disease, and lumbar facet arthropathy, last year with lumbar epidural steroid injection at L3 4 levels and she reported that she had excellent pain relief, until recently when she started having severe low back pain with radiation to the lower extremity Physical Examinations : -Constitutiona : Cooperative , not in acute distress . -HEENT : nech : supple , no Lymphadenopathy , normal thyroid size . eyes : no ptosis , no icterus, no photophobia . - neurologic : Cranial nerve II to XII intact , no focal neurological deffecit . -psychatric : alert , oriented X 3 , appropriate affect , intact judgment and insight . -Lymphatic : no Lymphadenopathy . - musculoskeltal : Lumber spine moter stegnth lower extremities ,thigh and legs 4/5 Right side , 5/5 Left side deep tendon reflexes : normal Knee Jerk , normal ankle Jerk positive lumber facet Loading Test Range of motion of the lumbar spine Flexion 30 degrees, extension 10 degrees strait leg raising test , positive at 45 degree on the right side, and negative on the left side Fabere test positive RT and positive LT . MRI of the lumbar spine L2-3 disc protrusion with facet arthropathy L3 4 facet degeneration and foraminal narrowing L4 5 disc protrusion and facet degeneration, L5-S1 disc protrusion Assessment and plan=1-lumbar radiculopathy.. 2-lumbar degenerative disc disease . 3-lumbar spondylosis with lumbar facet arthropathy Patient will be good candidate to have lumbar epidural steroid injection at L3 4 level and right-sided paramedian approach. Procedure risk and benefits and alternatives discussed with the patient and her daughter and they agreed with proceeding PQRS Measure Charge Sheet Measure #130: Documentation of Current Meds in Medical Chart: Patient's medications documented in chart Measure #226: Tobacco Use: Screen & Cessation Intervention: Pt not a tobacco user Measure #111: Pneumonia Vaccination: Pneumococcal vaccine administered or previously received Measure #47: Advance Care Plan: Advance care planning discussed & documented, pt chose/unable to give Measure #412: Opioid Treatment Agreement: No documentation of signed opioid treatment agreement Measure #408: Opioid Therapy Follow-up Evaluation: Patient had NO f/u eval minimum every 3 months during opioid therapy Measure #317: Preventitive Care & Scrn High Bld Press & F/U: Pre-hypertensive or hypertensive BP documented, pt will f/u with PCP Measure #128: Body Mass Index (BMI) Screening & Follow-up: BMI documented ABOVE normal parameters - f/u documented Measure #131: Pain Assessment & Follow-up: Pain positive & plan documented, Follow-up scheduled Measure #431: Unhealthy Alcohol Use Preventative Care & Scrn: Patient not identified as an unhealthy alcohol user PQRS Narrative: Objective - Vital Signs Vital signs: Vital Signs Temp 97.6 F 01/08/21 12:55 Pulse 80 01/08/21 12:55 Resp 18 01/08/21 12:55 BP 151/74 01/08/21 12:55 Pulse Ox 99 01/08/21 12:55
== END ==
LOC: PNWHC3 12:29
PROVIDERS: ATTEND Specialist
DX: M51.16 Intervertebral disc disorders with radiculopathy, lumbar region (principal); M47.26 Other spondylosis with radiculopathy, lumbar region; Z88.2 Allergy status to sulfonamides; Z88.5 Allergy status to narcotic agent
CPT/HCPCS: 99211

== ENCOUNTER 2021-02-06 05:54 | Day surgery (SDC) | payer MEDICARE ==
[2021-01-30 16:47] VITALS: BMI 26.9
[2021-02-06 06:19] VITALS: TEMP 96.6
[2021-02-06] MEDS ORDERED: MIDAZOLAM 2 MG/2 ML VIAL ONE (07:00)
[2021-02-06] MEDS ORDERED: IOPAMIDOL M200 10 ML VIAL ONE (07:00)
[2021-02-06] MEDS ORDERED: methylPREDNISolone ACETATE 40 MG/ML 1 ML VIAL ONE (07:00)
[2021-02-06] MEDS ORDERED: fentaNYL (PF) 50 MCG/ML 2 ML AMP ONE (07:00)
--- NOTE | 2021-02-06 07:12 | P.PCN ---
Date of Procedure: 02/06/21 Procedure(s) Performed: PREOPERATIVE DIAGNOSIS: 1- Lumbar Degenerative Disc Diseases 2-Lumbar spondylosis with Facet arthropathy without myelopathy. 3-lumbar radiculopathy POSTOPERATIVE DIAGNOSIS: Same as preop diagnosis. PROCEDURE 1. Lumbar epidural steroid injection under fluoroscopic guidance at the L3-4 level. (Fluoroscopy imaging was available in radiology department) 2. Lumbar epidurogram. ANESTHESIA: Local with 1% lidocaine 3 ml and , moderate sedation with i ntravenous Versed 1 mg ,and fentanyle 50 Mcg EBL: Minimal PROCEDURE INDICATION: The patient with low back pain and radiculitis symptoms unresponsive to conservative treatment. Fluoroscopy was used to optimize visualization of the needle placement and to maximize safety. PROCEDURE DESCRIPTION / TECHNIQUE: The patient was seen and identified in the preoperative area. Risks, benefits, complications including but not limited to infections ,bleeding ,allergic reaction to the medications ,nerve damage and not complete pain releife , and alternatives were discussed with the patient. The patient agreed to proceed with the procedure and signed the consent. IV was started, and vital signs were stable. Patient was taken to the OR and time out was completed. The patient was placed in the prone position on procedure table and a pillow was placed under the abdomen to reduce lumbar lordosis. The lumbosacral area was prepped and draped in the usual sterile fashion.ere closely monitored during the procedure. Conscious sedation was used during the procedure to decrease patients anxiety. Vital signs was monitered during the entire procedure. Using anterior-posterior fluoroscopy, the L3-4 interlaminar space was identified and the skin over this site was marked and then infiltrated with 1% lidocaine subcutaneously. Subsequently, a 20-gauge Tuohy epidural needle was inserted and advanced toward the epidural space using the ``Loss of resistance technique and guided by AP and lateral fluoroscopy. The correct needle position in the epidural space was verified with the injection of 2 mL of the water soluble contrast dye Isovue 200 contrast and observing an excellent epidurogram with the epidural spread of the dye, after negative aspiration for blood and CSF and in the absence of paresthesias. Again after negative aspiration, a 6 ml mixture containing 40 mg of Depo-medrol , and 2 ml of preservative free Normal Saline, and 2 ml of preservative free lidocaine 1% solution was injected and a washout of epidurogram was seen. Needle was withdrawn intact, skin was cleansed, and bandages were applied. COMPLICATIONS: None DISPOSITION / PLANS: The patient was placed in a supine position and transferred to the recovery area in a stable condition for observation. There was no evidence of lower extremity motor or sensory deficit after the procedure. Patient was discharged from the recovery room after meeting discharge criteria. Home discharge instructions were given to the patient by the staff. The patient was reexamined prior to discharge. The patient will schedule a follow up in the clinic in 2-4 weeks.
[2021-02-06 07:21] VITALS: RESP 16
--- NOTE | 2021-02-06 07:27 | FL ---
EXAMINATION TYPE: FL guided pain mgmt statistic DATE OF EXAM: 02/06/2021 FLUOROSCOPY Fluoroscopy time of 3 seconds was used during lumbar epidural injection. 1 image/s document/s the pr janice.
[2021-02-06 07:33] VITALS: BP 143/74; PULSE 58
[2021-02-06] MEDS ORDERED: IV FLUID CONTINUATION 1,000 ML IV ONE (07:43)
== END 2021-02-06 07:51 | disposition home or self-care (01) ==
LOC: ORPAIN 05:54
PROVIDERS: ATTEND Specialist
DX: M47.26 Other spondylosis with radiculopathy, lumbar region (principal); M51.16 Intervertebral disc disorders with radiculopathy, lumbar region
CPT/HCPCS: 62323; J2250; J1030; J3010; Q9966

== ENCOUNTER → 2021-03-13 | Outpatient (CLI) | payer MEDICARE ==
[2021-03-13 11:07] VITALS: BP 149/76; PULSE 98; RESP 16; TEMP 98.4
--- NOTE | 2021-03-13 11:13 | P.PN ---
Subjective Progress Note Date: 03/13/21 This is an 85-year-old lady with history of chronic lower back pain with ra diation to the right knee. The patient describes her pain as aching in quality and it is mostly in the morning when she wakes up .it improves after she starts moving and within an hour to 2 after we cannot. She had lumbar epidural steroid injection last year which gave her significant relief of pain and she had a recent one in a few weeks ago which gave her some relief of pain however didn't last long enough as she states. Patient denies new-onset weakness, bowel/bladder incontinence, or any other signs or symptoms of cauda equina syndrome. There are no signs of acute intoxication, and no indications of medication diversion or overuse. In addition to above, 13-point review of systems is also negative for chest pain, shortness of breath, changes in vision, changes in hearing, new onset weakness, abdominal pain, diarrhea, extreme fatigue, malaise, fever, skin changes, homicidal or suicidal ideation, or bowel or bladder incontinence. Vital Signs: Reviewed in EMR Gen: AAOx3, NAD HEENT: PERRLA,hearing grossly normal Pulm: resp unlabored Neck: supple, trachea midline Neuro exam of the lower extremities: Straight leg raising test: Blake's test: Range of motion of the lumbar spine: Facet loading test: Tenderness in the paravertebral musculature: Neuro: CN II-XII grossly intact, Imaging: Reviewed in EMR/chart Assessment: Lumbar stenosis Lumbar spondylosis without myelopathy Plan: 1. Explanation: When patients on opioids, opioid and psychological risk scores were reviewed. Diagnoses, prognoses, and multiple treatment options including but not limited to physical therapy, interventional therapies, adjuvant medical therapies, narcotic medication therapies, and surgery were discussed with the patient and all questions were answered to the patient's satisfaction. 2. Opioid agreement:When patients are prescribed opoids through our clinic, opioid agreement is signed with the patient and the patient is warned not to use opioids while driving or before driving and not to combine opioids with benzodiazepines or alcohol. 3. Counseling: When patient is smoking or obese, the patient was counseled extensively on SMOKING CESSATION, BODY MASS INDEX, EXERCISE. Specifically, the patient was instructed regarding the importance of smoking cessation, obesity, and exercise in the context of both chronic pain and overall health. 4. Procedures: Scheduled for lumbar epidural steroid injection #2 at L3 4 level in the right paramedian approach 5. Consultations: None 6. Investigations: None 7. Medications: The patient describes morning pain and stiffness which most likely is due to inflammation in the facet joints in the lumbar area and small dose of ibuprofen in the morning may help with this pain. I asked her to take ibuprofen 200 mg on full stomach in the morning along with Tylenol arthritis. 8. Disposition: Return to the above-mentioned procedure as soon as possible 9. Maps were reviewed and were appropriate. Objective - Vital Signs Vital signs: Vital Signs Temp 98.4 F 03/13/21 11:01 Pulse 98 03/13/21 11:01 Resp 16 03/13/21 11:01 BP 149/76 03/13/21 11:01 Pulse Ox Intake & Output 03/12/21 03/13/21 03/13/21 18:59 06:59 18:59 Weight 66.678 kg
== END ==
LOC: PNWHC3 10:43
PROVIDERS: ATTEND Anesthesiology
DX: M47.816 Spondylosis without myelopathy or radiculopathy, lumbar region (principal); M48.061 Spinal stenosis, lumbar region without neurogenic claudication; Z88.2 Allergy status to sulfonamides; Z88.5 Allergy status to narcotic agent
CPT/HCPCS: 99211

== ENCOUNTER 2021-05-08 08:47 | Day surgery (SDC) | payer MEDICARE ==
[2021-05-06 15:05] VITALS: BMI 26.5
[2021-05-08] MEDS ORDERED: LACTATED RINGERS 1,000 ML IV SCH (08:54)
[2021-05-08 09:26] VITALS: TEMP 97.6
[2021-05-08] MEDS ORDERED: LIDOCAINE 1% (10MG/ML) FOR IV START INTRADERMA ONE (09:33)
[2021-05-08] MEDS ORDERED: .fentaNYL (PF) 50 MCG/ML 2 ML AMP ONE (09:39)
[2021-05-08] MEDS ORDERED: methylPREDNISolone ACETATE 40 MG/ML 1 ML VIAL ONE (09:39)
[2021-05-08] MEDS ORDERED: MIDAZOLAM 2 MG/2 ML VIAL ONE (09:39)
[2021-05-08] MEDS ORDERED: IOPAMIDOL M200 10 ML VIAL ONE (09:39)
--- NOTE | 2021-05-08 09:50 | P.PCN ---
Date of Procedure: 05/08/21 Procedure(s) Performed: PREOPERATIVE DIAGNOSIS: 1- Lumbar Degenerative Disc Diseases 2-Lumbar spondylosis with Facet arthropathy without myelopathy. 3-lumbar radiculopathy POSTOPERATIVE DIAGNOSIS: Same as preop diagnosis. PROCEDURE 1. Lumbar epidural steroid injection under fluoroscopic guidance at the L3-4 level. (Fluoroscopy imaging was available in radiology department) 2. Lumbar epidurogram. ANESTHESIA: Local with 1% lidocaine 3 ml and , moderate sedation with intravenous Versed 1 mg ,and fentanyle 50 Mcg EBL: Minimal PROCEDURE INDICATION: The patient with low back pain and radiculitis symptoms unresponsive to conservative treatment. Fluoroscopy was used to optimize visualization of the needle placement and to maximize safety. PROCEDURE DESCRIPTION / TECHNIQUE: The patient was seen and identified in the preoperative area. Risks, benefits, complications including but not limited to infections ,bleeding ,allergic reaction to the medications ,nerve damage and not complete pain releife , and alternatives were discussed with the patient. The patient agreed to proceed with the procedure and signed the consent. IV was started, and vital signs were stable. Patient was taken to the OR and time out was completed. The patient was placed in the prone position on procedure table and a pillow was placed under the abdomen to reduce lumbar lordosis. The lumbosacral area was prepped and draped in the usual sterile fashion.ere closely monitored during the procedure. Conscious sedation was used during the procedure to decrease patients anxiety. Vital signs was monitered during the entire procedure. Using anterior-posterior fluoroscopy, the L3-4 interlaminar space was identified and the skin over this site was marked and then infiltrated with 1% lidocaine subcutaneously. Subsequently, a 20-gauge Tuohy epidural needle was inserted and advanced toward the epidural space using the ``Loss of resistance technique and guided by AP and lateral fluoroscopy. The correct needle position in the epidural space was verified with the injection of 2 mL of the water soluble contrast dye Isovue 200 contrast and observing an excellent epidurogram with the epidural spread of the dye, after negative aspiration for blood and CSF and in the absence of paresthesias. Again after negative aspiration, a 6 ml mixture containing 40 mg of Depo-medrol , and 2 ml of preservative free Normal Saline, and 2 ml of preservative free lidocaine 1% solution was injected and a washout of epidurogram was seen. Needle was withdrawn intact, skin was cleansed, and bandages were applied. COMPLICATIONS: None DISPOSITION / PLANS: The patient was placed in a supine position and transferred to the recovery area in a stable condition for observation. There was no evidence of lower extremity motor or sensory deficit after the procedure. Patient was discharged from the recovery room after meeting discharge criteria. Home discharge instructions were given to the patient by the staff. The patient was reexamined prior to discharge. The patient will schedule a follow up in the clinic in 2-4 weeks.
[2021-05-08] MEDS ORDERED: IV FLUID CONTINUATION 1,000 ML IV ONE (09:56)
[2021-05-08 09:57] VITALS: RESP 16
[2021-05-08 10:15] VITALS: BP 116/62; PULSE 61
--- NOTE | 2021-05-09 08:28 | FL ---
Fluoroscopy INDICATION: Pain FINDINGS: Fluoroscopy time: 8 seconds. Images obtained: 1. IMPRESSIONS: 1. Documentation of fluoroscopy.
== END 2021-05-08 10:29 | disposition home or self-care (01) ==
LOC: ORPAIN 08:47
PROVIDERS: ATTEND Specialist
DX: M51.36 Other intervertebral disc degeneration, lumbar region (principal)
CPT/HCPCS: 62323; J2250; J1030; J3010; Q9966

== ENCOUNTER → 2021-05-28 | Outpatient (CLI) | payer MEDICARE ==
--- NOTE | 2021-05-28 10:46 | P.PN ---
Subjective Progress Note Date: 05/28/21 This is a follow-up visit for this patient with a history of sever low back pain with radiation to the right lower extremity, she is Diagnosed with lumbar radiculopathy, lumbar degenerative disc disease, and lumbar spondylosis with lumbar facet arthropathy, status post lumbar epidural steroid injection at L3 4 levels x2 ,and she reported that she had excellent pain relief for a few weeks at each injection, currently she is having severe low back pain with radiation to the lower extremity, she denies any motor or sensory deficit, patient already done physical therapy, he continues to do home exercises and stretches exercise home and then she continued to use topical Voltaren gel and icy hot patch and she had minimal benefit from it Physical Examinations : -Constitutiona : Cooperative , not in acute distress . -HEENT : nech : supple , no Lymphadenopathy , normal thyroid size . eyes : no ptosis , no icterus, no photophobia . - neurologic : Cranial nerve II to XII intact , no focal neurological deffecit . -psychatric : alert , oriented X 3 , appropriate affect , intact judgment and insight . -Lymphatic : no Lymphadenopathy . - musculoskeltal : Lumber spine moter stegnth lower extremities ,thigh and legs 4/5 Right side , 5/5 Left side deep tendon reflexes : normal Knee Jerk , normal ankle Jerk positive lumber facet Loading Test Range of motion of the lumbar spine Flexion 30 degrees, extension 10 degrees strait leg raising test , positive at 45 degree on the right side, and negative on the left side Fabere test positive RT and positive LT . MRI of the lumbar spine L2-3 disc protrusion with facet arthropathy L3 4 facet degeneration and foraminal narrowing L4 5 disc protrusion and facet degeneration, L5-S1 disc protrusion Assessment and plan= 1-lumbar radiculopathy.. 2-lumbar degenerative disc disease . 3-lumbar spondylosis with lumbar facet arthropathy Patient will be good candidate to have lumbar epidural steroid injection at L3 4 level and right-sided paramedian approach. Procedure risk and benefits and alternatives discussed with the patient and she agreed with proceeding. In the future if she continued to have pain after the third lumbar epidural steroid injection, may have to [place] to target facetogenic component by doing diagnostic medial branch block PQRS Measure Charge Sheet Measure #130: Documentation of Current Meds in Medical Chart: Patient's medications documented in chart Measure #226: Tobacco Use: Screen & Cessation Intervention: Pt not a tobacco user Measure #111: Pneumonia Vaccination: Pneumococcal vaccine administered or previously received Measure #47: Advance Care Plan: Advance care planning discussed & documented, pt chose/unable to give Measure #412: Opioid Treatment Agreement: No documentation of signed opioid treatment agreement Measure #408: Opioid Therapy Follow-up Evaluation: Patient had NO f/u eval minimum every 3 months during opioid therapy Measure #317: Preventitive Care & Scrn High Bld Press & F/U: Pre-hypertensive or hypertensive BP documented, pt will f/u with PCP Measure #128: Body Mass Index (BMI) Screening & Follow-up: BMI documented ABOVE normal parameters - f/u documented Measure #131: Pain Assessment & Follow-up: Pain positive & plan documented, Follow-up scheduled Measure #431: Unhealthy Alcohol Use Preventative Care & Scrn: Patient not identified as an unhealthy alcohol user PQRS Narrative: Objective Objective - Vital Signs Vital signs: Intake & Output 05/27/21 05/28/21 05/28/21 18:59 06:59 18:59 Weight 66.678 kg
[2021-05-28 10:49] VITALS: BP 197/94; PULSE 72; RESP 18; TEMP 98.7
== END ==
LOC: PNWHC3 09:33
PROVIDERS: ATTEND Specialist
DX: M47.26 Other spondylosis with radiculopathy, lumbar region (principal); M51.16 Intervertebral disc disorders with radiculopathy, lumbar region; Z88.2 Allergy status to sulfonamides; Z88.5 Allergy status to narcotic agent
CPT/HCPCS: 99211

== ENCOUNTER 2021-07-17 08:21 | Day surgery (SDC) | payer MEDICARE ==
[2021-07-16 10:52] VITALS: BMI 26.9
[2021-07-17 09:19] VITALS: RESP 16; TEMP 97.7
[2021-07-17] MEDS ORDERED: LIDOCAINE 1% (10MG/ML) FOR IV START INTRADERMA ONE (09:25)
[2021-07-17] MEDS ORDERED: IOPAMIDOL M200 10 ML VIAL ONE (09:41)
[2021-07-17] MEDS ORDERED: methylPREDNISolone ACETATE 40 MG/ML 1 ML VIAL ONE (09:41)
[2021-07-17] MEDS ORDERED: fentaNYL (PF) 50 MCG/ML 2 ML AMP ONE (09:41)
[2021-07-17] MEDS ORDERED: MIDAZOLAM 2 MG/2 ML VIAL ONE (09:41)
--- NOTE | 2021-07-17 09:56 | P.PCN ---
Date of Procedure: 07/17/21 Procedure(s) Performed: PREOPERATIVE DIAGNOSIS: 1- Lumbar Degenerative Disc Diseases 2-Lumbar spondylosis with Facet arthropathy without myelopathy. 3-lumbar radiculopathy POSTOPERATIVE DIAGNOSIS: Same as preop diagnosis. PROCEDURE 1. Lumbar epidural steroid injection under fluoroscopic guidance at the L3-4 level. (Fluoroscopy imaging was available in radiology department) 2. Lumbar epidurogram. ANESTHESIA: Local with 1% lidocaine 3 ml and , moderate sedation with intravenous Versed 1 mg ,and fentanyle 50 Mcg EBL: Minimal PROCEDURE INDICATION: The patient with low back pain and radiculitis symptoms unresponsive to conservative treatment. Fluoroscopy was used to optimize visualization of the needle placement and to maximize safety. PROCEDURE DESCRIPTION / TECHNIQUE: The patient was seen and identified in the preoperative area. Risks, benefits, complications including but not limited to infections ,bleeding ,allergic reaction to the medications ,nerve damage and not complete pain releife , and alternatives were discussed with the patient. The patient agreed to proceed with the procedure and signed the consent. IV was started, and vital signs were stable. Patient was taken to the OR and time out was completed. The patient was placed in the prone position on procedure table and a pillow was placed under the abdomen to reduce lumbar lordosis. The lumbosacral area was prepped and draped in the usual sterile fashion.ere closely monitored during the procedure. Conscious sedation was used during the procedure to decrease patients anxiety. Vital signs was monitered during the entire procedure. Using anterior-posterior fluoroscopy, the L3-4 interlaminar space was identified and the skin over this site was marked and then infiltrated with 1% lidocaine subcutaneously. Subsequently, a 20-gauge Tuohy epidural needle was inserted and advanced toward the epidural space using the ``Loss of resistance technique and guided by AP and lateral fluoroscopy. The correct needle position in the epidural space was verified with the injection of 2 mL of the water soluble contrast dye Isovue 200 contrast and observing an excellent epidurogram with the epidural spread of the dye, after negative aspiration for blood and CSF and in the absence of paresthesias. Again after negative aspiration, a 6 ml mixture containing 40 mg of Depo-medrol , and 2 ml of preservative free Normal Saline, and 2 ml of preservative free lidocaine 1% solution was injected and a washout of epidurogram was seen. Needle was withdrawn intact, skin was cleansed, and bandages were applied. COMPLICATIONS: None DISPOSITION / PLANS: The patient was placed in a supine position and transferred to the recovery area in a stable condition for observation. There was no evidence of lower extremity motor or sensory deficit after the procedure. Patient was discharged from the recovery room after meeting discharge criteria. Home discharge instructions were given to the patient by the staff. The patient was reexamined prior to discharge. The patient will schedule a follow up in the clinic in 2-4 weeks.
[2021-07-17] MEDS ORDERED: IV FLUID CONTINUATION 1,000 ML IV ONE (10:02)
--- NOTE | 2021-07-17 10:06 | FL ---
EXAMINATION TYPE: FL guided pain mgmt statistic DATE OF EXAM: 07/17/2021 FLUOROSCOPY Fluoroscopy time of 2 seconds was used during lumbar epidural steroid injection. 1 image/s document/ s the procedure.
[2021-07-17 10:18] VITALS: BP 132/76; PULSE 64
== END 2021-07-17 10:36 | disposition home or self-care (01) ==
LOC: ORPAIN 08:21
PROVIDERS: ATTEND Specialist
DX: M51.16 Intervertebral disc disorders with radiculopathy, lumbar region (principal); M47.26 Other spondylosis with radiculopathy, lumbar region; Z79.82 Long term (current) use of aspirin; Z88.5 Allergy status to narcotic agent; Z88.2 Allergy status to sulfonamides
CPT/HCPCS: 62323; J2250; J1030; J3010; Q9966

== ENCOUNTER → 2021-08-04 | Outpatient (CLI) | payer MEDICARE ==
[2021-08-04 12:49] VITALS: BP 167/72; PULSE 67; RESP 18; TEMP 98.4
--- NOTE | 2021-08-04 14:47 | P.PN ---
Subjective Progress Note Date: 08/04/21 Principal diagnosis: A 86 yr old female with a history of severe and chronic low back pain secondary to lumbar degenerative disc diseases and lumbar spondylosis with facet arthropathy presents today for LESI L3-L4 #3. Patient states she expressed 90% pain relief for 10 days status post procedure. Pain today is located in the rear buttocks 3 out of 10 in intensity dull, achy, throbbing with radiation of pain to the rear aspect of the bilateral lower extremities. It escalates as high as 10 out of 10 in intensity when the patient is sitting up from a laying position or in the morning. Pain is alleviated with medications, topicals, injections, heat, physical therapy in 2019 made it worse, daily home exercise regimen, walking, and rest. Patient states that prescription diclofenac gel has worked well with managing pain and she was prolonging procedures with that medic ation. Interventional pain procedures completed include LESI L3-L4 #3 Patient is currently on Tylenol arthritis, icy hot gel, Voltaren gel. Patient denies any side effects of the medication(s), denies excessive drowsiness or sleepiness, denies suicidal ideation and reports that the current pain medication is helping to control the pain and improve activities of daily living. Patient denies any motor or sensory deficits. Patient denies any fever or night sweats, denies any change in the bowel movements or urination. Physical Examination: -Constitutional: Cooperative. Not in acute distress . -HEENT: Neck is supple. No lymphadenopathy. No thyromegaly. Normal thyroid size. Eyes: No ptosis , no icterus, no photophobia. ENT: No auditory deficits. Normal oropharynx. No Thrush. - Respiratory: Chest clear to auscultations bilaterally. No wheezing. No rhonchi. - Cardiovascular: Regular rate and rhythm. S1 / S2 , no S3 , no S4. - Gastrointestinal: Abdomen soft no tenderness. Bowel sounds positive in all four quadrants. No organomegaly. - Genitourinary: Deferred. - Neurologic: Cranial nerve II to XII intact. No focal neurological defici ts. - Psychatric: Alert & oriented x 3. Matching mood & appropriate affect. Judgment and insight intact. - Lymphatic: No Lymphadenopathy. - Musculoskeletal: Cervical spine: Muscle bulk/ tone/ strength in the bilateral upper extremities normal. Facet loading test cervical area positive. Lumbar spine: Motor bulk/ tone/ strength lower extremities , thigh and legs : 5/5 Deep tendon reflexes : Normal Knee Jerk. Normal Ankle Jerk . Vertebral body tenderness to palpation over L4 with accompanying paraspinal muscle tenderness to palpation Lumbar Facet Loading Test positive Straight Leg Raise: positive at 30 degrees right side/ left side Gaenslen's Test positive Sacral spine : Severe tenderness over the Sacroiliac joint: right side / left side Range of motion: Flexion of the lumbar spine <60 degrees Range of motion: Extension of the lumbar spine <20 degrees Gaenslen's Test positive Hardik test: positive right side / left side Assessment and plan: Chronic low back pain secondary to lumbar degenerative disc disease , lumbar spondylosis with facet arthropathy without myelopathy All patient questions answered MAPS reviewed and it was appropriate. Prescription filled for diclofenac gel, to apply to affected area up to 4 times a day as needed, dispense 1 tube with one refill. I have spent 31 minutes on patient care today. Dr Jack was available by phone for the evaluation of this patient. The time was used to review the medical records including relevant urine studies and Prescription history (MAPs), review of the available imaging, evaluation and examination of the patient, coordination of care with the medical staff and if applicable referring physicians, as well as creation of the medical record Objective - Vital Signs Vital signs: Vital Signs Temp 98.4 F 08/04/21 12:35 Pulse 67 08/04/21 12:35 Resp 18 08/04/21 12:35 BP 167/72 08/04/21 12:35 Pulse Ox 99 08/04/21 12:35 PQRS Measure Charge Sheet Mode of Arrival: Ambulatory - Pain Location Bilateral Buttock Non-Pharmacological Interventions: Exercise, Heat, Home Exercise Pharmacological Interventions: Epidural, PRN Medication, Topical Medication PQRS Narrative: Smoking Status Never smoker Blood Pressure 167/72 Pain Intensity [Bilateral 3 Buttock] Scale Used Numeric (1 - 10) Hx Alcohol Use (MH) No Home Medications: Ambulatory Orders Cholecalciferol [Vitamin D3 (25 Mcg = 1000 Iu)] 25 mcg PO DAILY 03/07/19 Citalopram Hydrobromide [CeleXA] 20 mg PO DAILY 03/07/19 Losartan-Hctz 50-12.5 mg [Hyzaar 50-12.5] 1.5 tab PO DAILY 03/07/19 Multivitamin [Multivitamins Adult Gummies] 2 tab PO DAILY 03/07/19 [place]-3 Fatty Acids/Fish Oil [Fish Oil 1,000 mg Softgel] 1,200 mg PO DAILY 01/16 diazePAM [Valium] 2.5 mg PO DAILY 03/07/19 lamoTRIgine [LaMICtal] 25 mg PO HS 03/07/19 Aspirin [Adult Low Dose Aspirin EC] 81 mg PO DAILY 04/20/19 LORazepam [Ativan] 0.5 mg PO HS 04/20/19 Acetaminophen [Tylenol Arthritis] 1,300 mg PO BID PRN 01/06/21 Dicyclomine [Bentyl] 10 - 20 mg PO BID PRN 01/30/21 Icy Hot [place] 1 spray TOPICAL DIRECTED PRN 01/30/21 Loperamide [Imodium] 2 mg PO QID PRN 01/30/21 Omeprazole 20 mg PO QAM PRN 03/12/21 Diclofenac Sodium Gel [Voltaren Gel] 2 gm TOPICAL QID PRN 30 Days #100 gm 08/04/21
== END ==
LOC: PNWHC3 10:51
PROVIDERS: ATTEND Physician Assistant Medical
DX: M51.36 Other intervertebral disc degeneration, lumbar region (principal); M47.816 Spondylosis without myelopathy or radiculopathy, lumbar region; G89.29 Other chronic pain; Z88.2 Allergy status to sulfonamides; Z88.5 Allergy status to narcotic agent
CPT/HCPCS: 99211

== ENCOUNTER → 2021-10-02 | Outpatient (CLI) | payer MEDICARE ==
[2021-10-02 13:00] VITALS: BP 162/76; PULSE 74; RESP 18
--- NOTE | 2021-10-02 13:12 | P.PN ---
Subjective Progress Note Date: 10/02/21 Principal diagnosis: A 86 yr old female with daughter at side with a history of severe and chronic low back pain secondary to lumbar degenerative disc diseases and lumbar spondylosis with facet arthropathy presents today for evaluation status post LESI of L3-L4 #2. She states she experienced 30% pain relief status post procedure. Pain level is currently at 8 out of 10 in intensity every morning, sore, achy in the lower aspects of the lumbar spine but sharp pain to the bu ttocks bilaterally and lower extremities. Pain is accompanied with lower extremity stiffness. Pain reduces to 3 out of 10 in intensity by afternoon and evening with stretching. Pain is alleviated with medications, topicals, injections, heat, physical therapy in the past, daily home stretching regimen and rest. Interventional pain procedures completed include LESI L3-L4 #2 Patient is currently on Voltaren gel, OTC Tylenol Arthritis. Patient denies any side effects of the medication(s), denies excessive drowsiness or sleepiness, denies suicidal ideation and reports that the current pain medication is helping to control the pain and improve activities of daily living. Patient denies any motor or sensory deficits. Patient denies any fever or night sweats, denies any change in the bowel movements or urination. Physical Examination: -Constitutional: Cooperative. Not in acute distress . -HEENT: Neck is supple. No lymphadenopathy. No thyromegaly. Normal thyroid size. Eyes: No ptosis , no icterus, no photophobia. ENT: No auditory deficits. Normal oropharynx. No Thrush. - Respiratory: Chest clear to auscultations bilaterally. No wheezing. No rhonchi. - Cardiovascular: Regular rate and rhythm. S1 / S2 , no S3 , no S4. - Gastrointestinal: Abdomen soft no tenderness. Bowel sounds positive in all four quadrants. No organomegaly. - Genitourinary: Deferred. - Neurologic: Cranial nerve II to XII intact. No focal neurological deficits. - Psychatric: Alert & oriented x 3. Matching mood & appropriate affect. Judgment and insight intact. - Lymphatic: No Lymphadenopathy. - Musculoskeletal: Cervical spine: Muscle bulk/ tone/ strength in the bilateral upper extremities normal. Facet loading test cervical area positive. Lumbar spine: Motor bulk/ tone/ strength lower extremities , thigh and legs : 5/5 Deep tendon reflexes : Normal Knee Jerk. Normal Ankle Jerk . Vertebral body tenderness to palpation over Lumbar Facet Loading Test positive BL Straight Leg Raise: positive at 30 degrees right side/ left side Gaenslen's Test positive Sacral spine : Severe tenderness over the Sacroiliac joint: right side / left side Range of motion: Flexion of the lumbar spine <60 degrees Range of motion: Extension of the lumbar spine <20 degrees Gaenslen's Test positive Hardik test: positive right side / left side Assessment and plan: Chronic low back pain secondary to lumbar degenerative disc disease , bronson mbar spondylosis with facet arthropathy without myelopathy Recommendation of BL facet block of the medial branches L4-L5, L5-S1 #1. May need a series of injections, up until RFA, for optimal pain relief. Risks, benefits of procedure discussed and patient verbalized understanding. Denies anticoagulant use or medical history of diabetes. All patient questions answered MAPS reviewed and it was appropriate. Prescription refill for Diclofenac gel with refill I have spent 31 minutes on patient care today. Dr Jack was available by phone for the evaluation of this patient. The time was used to review the medical records including relevant urine studies and Prescription history (MAPs), review of the available imaging, evaluation and examination of the patient, coordination of care with the medical staff and if applicable referring physicians, as well as creation of the medical record Objective - Vital Signs Vital signs: Vital Signs Temp Pulse 74 10/02/21 12:51 Resp 18 10/02/21 12:51 BP 162/76 10/02/21 12:51 Pulse Ox 98 10/02/21 12:51 Intake & Output 10/01/21 10/02/21 10/02/21 18:59 06:59 18:59 Weight 65.317 kg PQRS Measure Charge Sheet Mode of Arrival: Ambulatory - Pain Location Lower Back Non-Pharmacological Interventions: Heat, Home Exercise, Physical Therapy, Stretching Pharmacological Interventions: Epidural, PRN Medication, Topical Medication PQRS Narrative: Smoking Status Never smoker Blood Pressure 162/76 Pain Intensity [Lower Back] 3 Scale Used Numeric (1 - 10) Hx Alcohol Use (MH) No Home Medications: Ambulatory Orders Cholecalciferol [Vitamin D3 (25 Mcg = 1000 Iu)] 25 mcg PO DAILY 03/07/19 Citalopram Hydrobromide [CeleXA] 20 mg PO DAILY 03/07/19 Losartan-Hctz 50-12.5 mg [Hyzaar 50-12.5] 1.5 tab PO DAILY 03/07/19 Multivitamin [Multivitamins Adult Gummies] 2 tab PO DAILY 03/07/19 [place]-3 Fatty Acids/Fish Oil [Fish Oil 1,000 mg Softgel] 1,200 mg PO DAILY 03/07/19 diazePAM [Valium] 2.5 mg PO DAILY 03/07/19 lamoTRIgine [LaMICtal] 25 mg PO HS 03/07/19 Aspirin [Adult Low Dose Aspirin EC] 81 mg PO DAILY 04/20/19 LORazepam [Ativan] 0.5 mg PO HS 04/20/19 Acetaminophen [Tylenol Arthritis] 1,300 mg PO BID PRN 01/06/21 Dicyclomine [Bentyl] 10 - 20 mg PO BID PRN 01/30/21 Icy Hot [place] 1 spray TOPICAL DIRECTED PRN 01/30/21 Loperamide [Imodium] 2 mg PO QID PRN 01/30/21 Omeprazole 20 mg PO QAM PRN 03/12/21 Diclofenac Sodium Gel [Voltaren Gel] 100 gm TOPICAL BID 30 Days #100 ml 09/22/21
== END ==
LOC: PNWHC3 11:54
PROVIDERS: ATTEND Specialist
DX: M51.36 Other intervertebral disc degeneration, lumbar region (principal); M47.816 Spondylosis without myelopathy or radiculopathy, lumbar region; G89.29 Other chronic pain; Z88.5 Allergy status to narcotic agent; Z88.2 Allergy status to sulfonamides
CPT/HCPCS: 99212

== ENCOUNTER 2021-11-06 09:32 | Day surgery (SDC) | payer MEDICARE ==
[~2021-11-06 09:32] MED LIST changes: +LIDOCAINE 1% (10MG/ML) FOR IV START INTRADERMA PRN
[2021-11-06 10:40] VITALS: TEMP 97.3
[2021-11-06] MEDS ORDERED: LIDOCAINE 1% (10MG/ML) FOR IV START INTRADERMA ONE (10:48)
[2021-11-06] MEDS ORDERED: ROPIVACAINE 5MG/ML 20ML VIAL ONE (11:19)
[2021-11-06] MEDS ORDERED: MIDAZOLAM 2 MG/2 ML VIAL ONE (11:19)
[2021-11-06] MEDS ORDERED: methylPREDNISolone ACETATE 40 MG/ML 1 ML VIAL ONE (11:19)
[2021-11-06] MEDS ORDERED: fentaNYL (PF) 50 MCG/ML 2 ML AMP ONE (11:19)
--- NOTE | 2021-11-06 11:34 | P.PCN ---
Date of Procedure: 11/06/21 Procedure(s) Performed: PREOPERATIVE DIAGNOSIS : 1- Lumbar spondylosis with Facet Arthropathy without myelopathy . 2- Lumber degenerative disc disease POSTOPERATIVE DIAGNOSIS: 1- Lumbar spondylosis with Facet Arthropathy without myelopathy . 2- Lumber degenerative disc disease PROCEDURE: Diagnostic bilateral L3 , L4 , and L5 medial branch block under fluoroscopy guidance(fluoroscopy images available in the radiology Department ) ( To target the facet joint between bilateral L4-5 , and L5-S1 ) ANESTHESIA:, moderate sedation with intravenous Versed 2 mg and Fentanyl 50 mcg. EBL: Minimal COMPLICATION: None PROCEDURE INDICATION: Chronic low back pain secondary to Facet arthropathy unresponsive to conservative treatment. PROCEDURE DESCRIPTION: the patient was seen and identified in the preop holding area , risks and benefits and possible complications of the procedure and alternative were discussed with the patient, and the patient agreed to proceed with the procedure and signed the consent and vital signs monitored during the procedure and fluoroscopy was used to maximize the benefit and accuracy of the needle placement, and sedation was given to decrease patient anxiety, patient was taken to the procedure room and placed in prone position vital signs monitored in the back prepped with chlorhexidine X3 then under strict sterile technique using a right oblique fluoroscopy ,the junction of the transverse process and the superior articulating process of the right L3 , L4 , and L5 vertebra which corresponding to the fluoroscopy image of the eye of the Hua dog on the block side for the medial branches and subsequently , after local infiltration of skin and subcu tissuies with Ropivacaine 0.5 % , one mL at each level ,then 22-gauge Quincke-type needles , 3 needle was used , each one of them placed at the junction of the base of the transverse process and the superior articular process at the appropriate level, and the needle was advanced until the periosteum contacted, needle placement confirmed with AP oblique and lateral view and after appropriate needle placement confirmed, and after negative aspiration for heme and CSF and there was no paresthesia 1-1/2 mL of Ropivacaine 0.5% mixed with 20 mg Depo-Medrol , then half mL injected at each level after negative aspiration the needle subsequently removed and the same procedure repeated for the left side at left side at L3 , L4 and L5 levels. At the end of the procedure and the needles removed and a bandage applied after the skin was cleaned the cleaning solution patient taken to recovery room in stable condition and monitors in the recovery room for 20-30 minutes and discharged home in stable condition after discharge criteria met and patient will follow up with the pain clinic in 2-4 weeks
[2021-11-06] MEDS ORDERED: IV FLUID CONTINUATION 1,000 ML IV ONE (11:40)
[2021-11-06 11:56] VITALS: BP 135/70; PULSE 61; RESP 16
--- NOTE | 2021-11-06 12:40 | FL ---
Fluoroscopy INDICATION: Pain FINDINGS: Fluoroscopy time: 9 seconds. Images obtained: 4. IMPRESSIONS: 1. Documentation of fluoroscopy.
== END 2021-11-06 12:09 | disposition home or self-care (01) ==
LOC: ORPAIN 09:32
PROVIDERS: ATTEND Specialist
DX: M47.816 Spondylosis without myelopathy or radiculopathy, lumbar region (principal); M51.36 Other intervertebral disc degeneration, lumbar region; Z88.5 Allergy status to narcotic agent; Z88.2 Allergy status to sulfonamides
CPT/HCPCS: 64493; 64494; J2250; J1030; J3010; J2795; 99152

== ENCOUNTER → 2021-11-27 | Outpatient (CLI) | payer MEDICARE ==
[2021-11-27 14:32] VITALS: BP 148/68; PULSE 72; RESP 18; TEMP 98.2
--- NOTE | 2021-11-27 15:04 | P.PAINPG ---
PQRS Measure Charge Sheet Comment: A 86 yr old female with a history of severe and chronic low back pain secondary to lumbar degenerative disc diseases and lumbar spondylosis with facet arthropathy presents today for BL MBB of L4-L5, L5-S1, #1. She states she experienced 80% x 2-3 days pain relief s/p procedure. Pain level is currently at 4/10 in intensity, localized to the lower aspect of her lumbar spine x 1.5 yrs w radiation to the BLEs. Pain is provoked by cold weather. Pain is alleviated with morning workout regimen, medications (Tylenol arthritis, Voltaren), topicals, heat, repositioning and rest. Interventional pain procedures completed include BL MBB L3-L5 #1 Patient is currently on Tylenol Arthritis Patient denies any side effects of the medication(s), denies excessive drowsiness or sleepiness, denies suicidal ideation and reports that the current pain medication is helping to control the pain and improve activities of daily living. Patient denies any motor or sensory deficits. Patient denies any fever or night sweats, denies any change in the bowel movements or urination. Physical Examination: -Constitutional: Cooperative. Not in acute distress . - Neurologic: Cranial nerve II to XII intact. No focal neurological deficits. - Psychatric: Alert & oriented x 3. Matching mood & appropriate affect. Judgment and insight intact. - Musculoskeletal: Cervical spine: Muscle bulk/ tone/ strength in the bilateral upper extremities normal Vertebral body tenderness to palpation over [place] test positive Distraction test positive Facet loading test positive Thoracic spine Muscle bulk / tone/ strength in the bilateral paraspinal muscles normal Vertebral body tender to palpation over Facet loading test positive Lumbar spine: Motor bulk/ tone/ strength lower extremities , thigh and legs : 5/5 Deep tendon reflexes : Normal Knee Jerk. Normal Ankle Jerk . Vertebral body tenderness to palpation over Lumbar Facet Loading Test positive over BL L4-L5, L5-S1 Straight Leg Raise: positive at 30 degrees right side/ left side Gaenslen's Test positive Sacral spine : Severe tenderness over the Sacroiliac joint: right side / left side Range of motion: Flexion of the lumbar spine <60 degrees Range of motion: Extension of the lumbar spine <20 degrees Gaenslen's Test positive Blake's Test positive Hardik test: positive right side / left side Thigh Thrust Test Sacral Thrust Test Assessment and plan: Chronic low back pain secondary to lumbar degenerative disc disease , lumbar spondylosis with facet arthropathy without myelopathy Recommendation of BL MBB L4-L5, L5-S1 #1. May need a series of injections, up until RFA, for optimal pain relief. Risks, benefits of procedure discussed and pt verbalized understanding. Admits to anticoagulant use and denies medical history of diabetes. Protocol for discontinuation/ continuation of medications maritza procedure discussed. All patient questions answered MAPS reviewed and it was appropriate. I have spent less than 30 minutes on patient care today. Dr Jack was available by phone for the evaluation of this patient. The time was used to review the medical records including relevant urine studies and Prescription history (MAPs), review of the available imaging, evaluation and examination of the patient, coordination of care with the medical staff and if applicable referring physicians, as well as creation of the medical record PQRS Narrative: Smoking Status Never smoker Hx Alcohol Use (MH) No Home Medications: Ambulatory Orders Cholecalciferol [Vitamin D3 (25 Mcg = 1000 Iu)] 25 mcg PO DAILY 03/07/19 Citalopram Hydrobromide [CeleXA] 20 mg PO DAILY 03/07/19 Losartan-Hctz 50-12.5 mg [Hyzaar 50-12.5] 1.5 tab PO DAILY 03/07/19 Multivitamin [Multivitamins Adult Gummies] 2 tab PO DAILY 03/07/19 [place]-3 Fatty Acids/Fish Oil [Fish Oil 1,000 mg Softgel] 1,200 mg PO DAILY 03/07/19 diazePAM [Valium] 2.5 mg PO DAILY 03/07/19 lamoTRIgine [LaMICtal] 25 mg PO HS 03/07/19 Aspirin [Adult Low Dose Aspirin EC] 81 mg PO DAILY 04/20/19 LORazepam [Ativan] 0.5 mg PO HS 04/20/19 Acetaminophen [Tylenol Arthritis] 1,300 mg PO BID 01/06/21 Dicyclomine [Bentyl] 10 - 20 mg PO BID PRN 01/30/21 Icy Hot [place] 1 spray TOPICAL DIRECTED PRN 01/30/21 Loperamide [Imodium] 2 mg PO QID PRN 01/30/21 Diclofenac Sodium Gel [Voltaren Gel] 100 gm TOPICAL BID 30 Days #100 ml 10/02/21 Controlled Substance Measures - Controlled Substance Measures Is patient prescribed a controlled substance at discharge?: No
== END ==
LOC: PNWHC3 09:59
PROVIDERS: ATTEND Specialist
DX: M51.36 Other intervertebral disc degeneration, lumbar region (principal); M47.816 Spondylosis without myelopathy or radiculopathy, lumbar region; G89.29 Other chronic pain; Z88.5 Allergy status to narcotic agent; Z88.2 Allergy status to sulfonamides
CPT/HCPCS: 99211

== ENCOUNTER 2022-01-01 07:09 | Day surgery (SDC) | payer MEDICARE ==
[2021-12-31 11:26] VITALS: BMI 26.3
[~2022-01-01 07:09] MED LIST changes: -LIDOCAINE 1% (10MG/ML) FOR IV START INTRADERMA PRN
[2022-01-01 07:37] VITALS: TEMP 98
[2022-01-01] MEDS ORDERED: LIDOCAINE 1% (10MG/ML) FOR IV START INTRADERMA ONE (07:42)
[2022-01-01] MEDS ORDERED: MIDAZOLAM 2 MG/2 ML VIAL ONE (08:02)
[2022-01-01] MEDS ORDERED: ROPIVACAINE 5MG/ML 20ML VIAL ONE (08:02)
--- NOTE | 2022-01-01 08:14 | P.PCN ---
Date of Procedure: 01/01/22 Procedure(s) Performed: Bilateral L4 5 L5-S1 lumbar medial branch block Description of Procedure: Procedure: BILATERAL L4-5, L5-S1 Diagnosis: Lumbar spondylosis without myelopathy ANESTHESIA: Medication Administered by: nurse Sedation Type: moderate sedation with versed Sedation Supervision start time: 803 Sedation Supervision end time: 812 Imaging: Fluoroscopy was used, images where saved to the medical record The patient was seen and examined in the [facility]. Procedure risks and benefits were fully reviewed with the patient. The patient understands this is a diagnostic if local only is used, as will be the case today. The goal of the procedure is to inject medication onto the medial branch or small nerves that innervate the facet joints. In this way, we can hopefully identify which of these joints, if any, may be contributing to their pain. Informed consent for procedure was obtained. The patient was taken into the office fluoroscopy procedure room and placed prone on the table. A pillow was placed under the abdomen to reduce lumbar lordosis. Vital signs were closely monitored during the procedure. The skin over the area was prepped with Betadine X 3 and draped in usual sterile manner. Sterile technique was observed throughout procedure. Under biplanar fluoroscopic guidance, the target injection area of the L4, L5, Sacral Ala were targeted. A 25 gauge 31/2 inch spinal needle was then placed at the most medial and superior aspect of the transverse process near the "eye of the Hua dog". Aspiration for blood was negative. 1 cc of 0.5% Ropivacaine was injected into the targeted areas separately. [place] were withdrawn intact. No complications were noted during the procedure. The patient tolerated the procedure well. The patient was placed in supine position and transferred to the recovery area for observation and remained stable until discharged home. Home discharge instructions were given to the patient by the staff. The patient will schedule a follow up as directed.
[2022-01-01] MEDS ORDERED: IV FLUID CONTINUATION 1,000 ML IV ONE ×2 (08:20)
[2022-01-01 08:39] VITALS: RESP 18
[2022-01-01 09:03] VITALS: BP 135/72; PULSE 56
--- NOTE | 2022-01-01 09:54 | FL ---
EXAMINATION TYPE: FL guided pain mgmt statistic DATE OF EXAM: 01/01/2022 FLUOROSCOPY Fluoroscopy time of 10 seconds was used during lumbar facet block. 6 image/s document/s the procedur e.
== END 2022-01-01 08:58 | disposition home or self-care (01) ==
LOC: ORPAIN 07:09
PROVIDERS: ATTEND Hospitalist
DX: M47.816 Spondylosis without myelopathy or radiculopathy, lumbar region (principal); Z88.2 Allergy status to sulfonamides; Z88.5 Allergy status to narcotic agent; Z79.899 Other long term (current) drug therapy; Z79.1 Long term (current) use of non-steroidal anti-inflammatories (NSAID); Z79.82 Long term (current) use of aspirin; Z82.49 Family history of ischemic heart disease and other diseases of the circulatory system
CPT/HCPCS: 64493; 64494; J2250; J2795

== ENCOUNTER 2022-02-26 05:44 | Day surgery (SDC) | payer MEDICARE ==
[2022-02-25 09:36] VITALS: BMI 26.2
[~2022-02-26 05:44] MED LIST changes: +LIDOCAINE 1% (10MG/ML) FOR IV START INTRADERMA PRN
[2022-02-26 06:35] VITALS: TEMP 97.9
[2022-02-26] MEDS ORDERED: ROPIVACAINE 5 MG/ML 20 ML AMPULE ONE (06:55)
[2022-02-26] MEDS ORDERED: methylPREDNISolone ACETATE 40 MG/ML 1 ML VIAL ONE (06:55)
[2022-02-26] MEDS ORDERED: fentaNYL (PF) 50 MCG/ML 2 ML AMP ONE (06:55)
[2022-02-26] MEDS ORDERED: MIDAZOLAM 2 MG/2 ML VIAL ONE (06:55)
--- NOTE | 2022-02-26 07:28 | P.PCN ---
Date of Procedure: 02/26/22 Procedure(s) Performed: PREOPERATIVE DIAGNOSIS: 1-Lumbar Spondylosis with Facet Arthropathy without myelopathy. 2- Lumber degenerative disc disease. 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 2- Lumber degenerative disc disease. PROCEDURES : Bilateral Radiofrequency thermocoagulation, L3 , L4 , and L5 medial branch, with fluoroscopic guidance (fluoroscopy images available in the radiology department) ( to denervate the facet joint at bilateral L4-5 ,and L5-S1 levels ). ANESTHESIA: Moderate sedation with intravenous versed 1 mg and fentaneyl 50 mcg, and local infiltration with Ropivacaine 0.5 % . Sedation start 0658, end 0 725 EBL: Minimal PROCEDURE INDICATION: The patient with low back pain secondary to lumbar facet arthropathy who had more than 50% relief of her pain with previous diagnostic lumbar medial branch block with bupivacaine. PROCEDURE DESCRIPTION / TECHNIQUE: The patient was seen and identified in the preoperative area. Risks, benefits, complications, including but not limited to risk of infection ,bleeding , allergic reactions to the medications and no complete pain releife , and alternatives were discussed with the patient, the patient agreed to proceed with the procedure and signed the consent. IV was started. Vital signs remained stable throughout the procedure. Patient was taken to the OR and time out was completed. The patient was placed in the prone position on the procedure table. The lumber area was prepped and draped in the usual sterile fashion. . Vital signs were closely monitored during the procedure .IV sedation was used during the procedure to decrease patients anxiety. Using AP and then oblique fluoroscopy, the ``eye of the Hua dog corresponding to the connection between the superior and transverse articular processes of right L3, L4, and L5 were identified, marked, and localized with 1% lidocaine. Subsequently, a 18 -aj radiofrequency cannula with a 10- mm active tip was advanced guided by fluoroscopy to each of the``eyes of the Hua dog at right L3, L4, and L5. Each site then underwent sensory testing at 50 Hz and 0 to 1 volt and motor testing at 2.5 Hz and 0 to 3 volt with local stimulation, but no radicular symptoms down the legs. Thereafter each sites underwent radiofrequency thermocoagulation at 80 degrees celsius for 90 seconds after injecting 0.5 ml of PF Ropivacaine 1ml, then after the thermocoagulation done , 1 ml of the block solution containing Depo-Medrol 20 mg and 3 ml of Ropivacaine 0.5% was injected at the right L3 , L4 , and L5 , levels after negative aspiration of CSF and blood and with no paresthesias. Cannulas were retracted while injecting lidocaine 1% until the needle is out. The same procedure was repeated at the level of Left L3, L4, and L5 levels. At the end of the procedure, the skin was cleansed and bandages were applied. COMPLICATIONS: No acute complications. DISPOSITION / PLANS: The patient was placed in a supine position and transferred to the recovery area in a stable condition for observation and was discharged from the recovery room after meeting discharge criteria. Home discharge instructions given to the patient by the staff. The patient was reexamined prior to discharge. The patient will schedule a follow up in the clinic in 2-4 weeks.
[2022-02-26] MEDS ORDERED: IV FLUID CONTINUATION 1,000 ML IV ONE (07:32)
--- NOTE | 2022-02-26 07:36 | FL ---
Fluoroscopy INDICATION: Pain FINDINGS: Fluoroscopy time: 17 seconds. Images obtained: 6. IMPRESSIONS: 1. Documentation of fluoroscopy.
[2022-02-26 07:48] VITALS: BP 149/69; PULSE 56; RESP 16
== END 2022-02-26 08:03 | disposition home or self-care (01) ==
LOC: ORPAIN 05:44
PROVIDERS: ATTEND Specialist
DX: M51.36 Other intervertebral disc degeneration, lumbar region (principal); M47.816 Spondylosis without myelopathy or radiculopathy, lumbar region; G89.29 Other chronic pain; Z88.5 Allergy status to narcotic agent; Z88.2 Allergy status to sulfonamides
CPT/HCPCS: 64635; 64636 ×2; 99152; 99153; J2250; J1030; J3010; J2795

== ENCOUNTER → 2022-03-16 | Outpatient (CLI) | payer MEDICARE ==
[2022-03-16 13:43] VITALS: BP 157/83; PULSE 71; RESP 18; TEMP 98.2
--- NOTE | 2022-03-16 14:49 | P.PAINPG ---
PQRS Measure Charge Sheet Comment: A 86 yr old female with a history of severe and chronic low back pain secondary to lumbar degenerative disc diseases and lumbar spondylosis with facet arthropathy without myelopathy presents today for evaluation s/p BL RFA L4-L5, L5-S1. Pt states she experienced 100% pain relief x 3 days s/p procedure. Pain level is currently at 4/10 in intensity in the morning, intermittent in the mornings, localized in the BLEs, dull/ achy in character. Pain is provoked every morning when moving after being sedentary. Pain is alleviated with PT 2 yrs ago, daily walking regimen, home stretching regimen, topicals, medications (Tylenol Arthritis), repositioning and rest. Interventional pain procedures completed include BL RFA L3-L5, LESIs Patient is currently on Tylenol OTC Patient denies any side effects of the medication(s), denies excessive drowsiness or sleepiness, denies suicidal ideation and reports that the current pain medication is helping to control the pain and improve activities of daily living. Patient denies any motor or sensory deficits. Patient denies any fever or night sweats, denies any change in the bowel movements or urination. Physical Examination: -Constitutional: Cooperative. Not in acute distress . - Neurologic: Cranial nerve II to XII intact. No focal neurological deficits. - Psychatric: Alert & oriented x 3. Matching mood & appropriate affect. Judgment and insight intact. - Musculoskeletal: Cervical spine: Muscle bulk/ tone/ strength in the bilateral upper extremities normal Vertebral body tenderness to palpation over Spurling test positive Distraction test positive Facet loading test positive Thoracic spine Muscle bulk / tone/ strength in the bilateral paraspinal muscles normal Vertebral body tender to palpation over Facet loading test positive Lumbar spine: Motor bulk/ tone/ strength lower extremities , thigh and legs : 5/5 Deep tendon reflexes : Normal Knee Jerk. Normal Ankle Jerk . Vertebral body tenderness to palpation over Lumbar Facet Loading Test positive Straight Leg Raise: positive at 30 degrees right side/ left side Gaenslen's Test positive Sacral spine : Severe tenderness over the Sacroiliac joint: right side / left side Range of motion: Flexion of the lumbar spine <60 degrees Range of motion: Extension of the lumbar spine <20 degrees Gaenslen's Test positive Blake's Test positive Hardik test: positive right side / left side Thigh Thrust Test Sacral Thrust Test Assessment and plan: Chronic low back pain secondary to lumbar degenerative disc disease , lumbar spondylosis with facet arthropathy without myelopathy Recommendation of MRI without contrast of the lumbar spine re: M51.36 Recommendation of PT x 6 wks re: M51.36 Pt may return to our clinic on an as needed basis All patient questions answered I have spent less than 30 minutes on patient care today. Dr Jack was available by phone for the evaluation of this patient. The time was used to review the medical records including relevant urine studies and Prescription history (MAPs), review of the available imaging, evaluation and examination of the patient, coordination of care with the medical staff and if applicable referring physicians, as well as creation of the medical record PQRS Narrative: Smoking Status Never smoker Hx Alcohol Use (MH) No Home Medications: Ambulatory Orders Cholecalciferol [Vitamin D3 (25 Mcg = 1000 Iu)] 25 mcg PO DAILY 03/07/19 Citalopram Hydrobromide [CeleXA] 20 mg PO DAILY 03/07/19 Losartan-Hctz 50-12.5 mg [Hyzaar 50-12.5] 1.5 tab PO DAILY 03/07/19 Multivitamin [Multivitamins Adult Gummies] 2 tab PO DAILY 03/07/19 [place]-3 Fatty Acids/Fish Oil [Fish Oil 1,000 mg Softgel] 1,200 mg PO DAILY 03/07/19 diazePAM [Valium] 2.5 mg PO DAILY 03/07/19 lamoTRIgine [LaMICtal] 25 mg PO HS 03/07/19 Aspirin [Adult Low Dose Aspirin EC] 81 mg PO DAILY 04/20/19 LORazepam [Ativan] 0.5 mg PO HS 04/20/19 Acetaminophen [Tylenol Arthritis] 1,300 mg PO BID 01/06/21 Dicyclomine [Bentyl] 10 - 20 mg PO BID PRN 01/30/21 Icy Hot [place] 1 spray TOPICAL DIRECTED PRN 01/30/21 Loperamide [Imodium] 2 mg PO QID PRN 01/30/21 Diclofenac Sodium Gel [Voltaren Gel] 100 gm TOPICAL BID PRN 30 Days #100 ml 12/18/21 methocarbamoL [Robaxin] 500 mg PO BID PRN 30 Days #60 tab 03/16/22 Controlled Substance Measures - Controlled Substance Measures Is patient prescribed a controlled substance at discharge?: No
== END ==
LOC: PNWHC3 12:42
PROVIDERS: ATTEND Specialist
DX: M51.36 Other intervertebral disc degeneration, lumbar region (principal); M47.816 Spondylosis without myelopathy or radiculopathy, lumbar region; G89.29 Other chronic pain; M19.90 Unspecified osteoarthritis, unspecified site; Z88.5 Allergy status to narcotic agent; Z88.2 Allergy status to sulfonamides
CPT/HCPCS: 99211

== ENCOUNTER → 2022-05-07 | Outpatient (CLI) | payer MEDICARE ==
[2022-05-07 13:53] VITALS: BP 155/78; PULSE 78; RESP 18; TEMP 98.2
--- NOTE | 2022-05-07 14:47 | P.PAINPG ---
PQRS Measure Charge Sheet Comment: A 87 yr old female with a history of severe and chronic low back pain secondary to lumbar DDD and spondylosis with facet arthropathy without myelopathy presents today for medication refills. Pain level is currently at 1/10 in intensity, constant, dull/ achy in character w shooting towards the back of the LEs. Pain is provoked by bending, twisting, lifting. Pain is alleviated with medications, topicals, injections, home exercise regimen every morning, repositioning and rest. Interventional pain procedures completed include BL RFA L3-L5, LESIs x6 Patient is currently on Robaxin 750mg #90, Tylenol XS, Voltaren gel Patient denies any side effects of the medication(s), denies excessive drowsiness or sleepiness, denies suicidal ideation and reports that the current pain medication is helping to control the pain and improve activities of daily living. Patient denies any motor or sensory deficits. Patient denies any fever or night sweats, denies any change in the bowel movements or urination. Physical Examination: -Constitutional: Cooperative. Not in acute distress . - Neurologic: Cranial nerve II to XII intact. No focal neurological deficits. - Psychatric: Alert & oriented x 3. Matching mood & appropriate affect. Judgment and insight intact. - Musculoskeletal: Cervical spine: Muscle bulk/ tone/ strength in the bilateral upper extremities normal Vertebral body tenderness to palpation over Spurling test positive Distraction test positive Facet loading test positive Thoracic spine Muscle bulk / tone/ strength in the bilateral paraspinal muscles normal Vertebral body tender to palpation over Facet loading test positive Lumbar spine: Motor bulk/ tone/ strength lower extremities , thigh and legs : 5/5 Deep tendon reflexes : Normal Knee Jerk. Normal Ankle Jerk . Vertebral body tenderness to palpation over L4, L5 Lumbar Facet Loading Test positive Straight Leg Raise: positive at 30 degrees right side/ left side Gaenslen's Test positive Sacral spine : Severe tenderness over the Sacroiliac joint: right side / left side Range of motion: Flexion of the lumbar spine <60 degrees Range of motion: Extension of the lumbar spine <20 degrees Gaenslen's Test positive Hardik test: positive right side / left side Thigh Thrust Test Sacral Thrust Test Assessment and plan: Chronic low back pain secondary to lumbar degenerative disc disease, spondylosis with facet arthropathy without myelopathy All patient questions answered Prescription refill for Tramadol 50mg 360, Robaxin 750mg #90 x 2 RF I have spent less than 30 minutes on patient care today. Dr Jack was available by phone for the evaluation of this patient. The time was used to review the medical records including relevant urine studies and Prescription history (MAPs), review of the available imaging, evaluation and examination of the patient, coordination of care with the medical staff and if applicable referring physicians, as well as creation of the medical record PQRS Narrative: Smoking Status Never smoker Hx Alcohol Use (MH) No Home Medications: Ambulatory Orders Cholecalciferol [Vitamin D3 (25 Mcg = 1000 Iu)] 25 mcg PO DAILY 03/07/19 Citalopram Hydrobromide [CeleXA] 20 mg PO DAILY 03/07/19 Losartan-Hctz 50-12.5 mg [Hyzaar 50-12.5] 1.5 tab PO DAILY 03/07/19 Multivitamin [Multivitamins Adult Gummies] 2 tab PO DAILY 03/07/19 [place]-3 Fatty Acids/Fish Oil [Fish Oil 1,000 mg Softgel] 1,200 mg PO DAILY 03/07/19 diazePAM [Valium] 2.5 mg PO DAILY 03/07/19 lamoTRIgine [LaMICtal] 25 mg PO HS 03/07/19 Aspirin [Adult Low Dose Aspirin EC] 81 mg PO DAILY 04/20/19 LORazepam [Ativan] 0.5 mg PO HS 04/20/19 Acetaminophen [Tylenol Arthritis] 1,300 mg PO BID 01/06/21 Dicyclomine [Bentyl] 10 - 20 mg PO BID PRN 01/30/21 Icy Hot [place] 1 spray TOPICAL DIRECTED PRN 01/30/21 Loperamide [Imodium] 2 mg PO QID PRN 01/30/21 Diclofenac Sodium Gel [Voltaren Gel] 100 gm TOPICAL BID PRN 30 Days #100 ml 04/08/22 methocarbamoL [Robaxin] 500 mg PO BID PRN 30 Days #60 tab 05/07/22 Controlled Substance Measures - Controlled Substance Measures Is patient prescribed a controlled substance at discharge?: No
== END ==
LOC: PNWHC3 13:21
PROVIDERS: ATTEND Specialist
DX: M47.816 Spondylosis without myelopathy or radiculopathy, lumbar region (principal); G89.29 Other chronic pain; M51.36 Other intervertebral disc degeneration, lumbar region; Z88.5 Allergy status to narcotic agent; Z88.2 Allergy status to sulfonamides
CPT/HCPCS: 99211

== ENCOUNTER → 2022-10-21 | Outpatient (CLI) | payer MEDICARE ==
[2022-10-21 14:00] VITALS: BP 175/69; PULSE 74; RESP 18; TEMP 97.6
--- NOTE | 2022-10-21 14:33 | P.PAINPG ---
PQRS Measure Charge Sheet Comment: A 87 yr old female with a history of severe and chronic LBP secondary to lumbar DDD and spondylosis with facet arthropathy without myelopathy presents today for medication refills. Pain level is provoked at 0 /10 in intensity at this time. Pain is alleviated with medications, topicals, injections, heat, home exercise regimen every morning, repositioning and rest. Interventional pain procedures completed include BL RFA L3-L5 Patient is currently on Tylenol Arthritis, Voltaren gel, occasional Robaxin Patient denies any side effects of the medication(s), denies excessive drowsiness or sleepiness, denies suicidal ideation and reports that the current pain medication is helping to control the pain and improve activities of daily living. Patient denies any motor or sensory deficits. Patient denies any fever or night sweats, denies any change in the bowel movements or urination. Physical Examination: -Constitutional: Cooperative. Not in acute distress . - Neurologic: Cranial nerve II to XII intact. No focal neurological deficits. - Psychatric: Alert & oriented x 3. Matching mood & appropriate affect. Judgment and insight intact. - Musculoskeletal: Cervical spine: Muscle bulk/ tone/ strength in the bilateral upper extremities normal Vertebral body tenderness to palpation over Spurling test positive Distraction test positive Facet loading test positive Thoracic spine Muscle bulk / tone/ strength in the bilateral paraspinal muscles normal Vertebral body tender to palpation over Facet loading test positive Lumbar spine: Motor bulk/ tone/ strength lower extremities , thigh and legs : 5/5 Deep tendon reflexes : Normal Knee Jerk. Normal Ankle Jerk . Vertebral body tenderness to palpation over L4, L5 Lumbar Facet Loading Test positive Straight Leg Raise: positive at 30 degrees right side/ left side Gaenslen's Test positive Sacral spine : Severe tenderness over the Sacroiliac joint: right side / left side Range of motion: Flexion of the lumbar spine <60 degrees Range of motion: Extension of the lumbar spine <20 degrees Gaenslen's Test positive Hardik test: positive right side / left side Thigh Thrust Test Sacral Thrust Test Assessment and plan: Chronic LBP secondary to lumbar DDD, spondylosis with facet arthropathy without myelopathy Chronic and current use of high-risk medication (Opioids). The patient was counseled about risk of opioid use, psychological risk associated with opioids and was orally counseled to not overuse , divert or sell medications. Pt is to store medication in a safe location. The patient is counseled against driving while using narcotic medications and also not to use alcohol or any illicit recreational drugs. Patient verbalized understanding that the lack of compliance will result in failure to renew narcotic prescription(s) as well as possible discharge from the clinic Diagnoses, prognosis and treatment options including but not limited to physical therapy, surgical interventions, interventional therapies and medication management including narcotics and adjuvant medication were discussed. All patient questions answered MAPS reviewed and it was appropriate. Prescription refill for Voltaren gel w 2 RF. May return to clinic on an as needed basis. I have spent less than 30 minutes on patient care today. Dr Jack was available by phone for the evaluation of this patient. The time was used to review the medical records including relevant urine studies and Prescription history (MAPs), review of the available imaging, evaluation and examination of the patient, coordination of care with the medical staff and if applicable referring physicians, as well as creation of the medical record PQRS Narrative: Smoking Status Never smoker Hx Alcohol Use (MH) No Home Medications: Ambulatory Orders Cholecalciferol [Vitamin D3 (25 Mcg = 1000 Iu)] 25 mcg PO DAILY 03/07/19 Citalopram Hydrobromide [CeleXA] 20 mg PO DAILY 03/07/19 Losartan-Hctz 50-12.5 mg [Hyzaar 50-12.5] 1.5 tab PO DAILY 03/07/19 Multivitamin [Multivitamins Adult Gummies] 2 tab PO DAILY 03/07/19 [place]-3 Fatty Acids/Fish Oil [Fish Oil 1,000 mg Softgel] 1,200 mg PO DAILY 03/07/19 diazePAM [Valium] 2.5 mg PO DAILY 03/07/19 lamoTRIgine [LaMICtal] 25 mg PO HS 03/07/19 Aspirin [Adult Low Dose Aspirin EC] 81 mg PO DAILY 04/20/19 LORazepam [Ativan] 0.5 mg PO HS 04/20/19 Acetaminophen [Tylenol Arthritis] 1,300 mg PO BID 01/06/21 Dicyclomine [Bentyl] 10 - 20 mg PO BID PRN 01/30/21 Icy Hot [place] 1 spray TOPICAL DIRECTED PRN 01/30/21 Loperamide [Imodium] 2 mg PO QID PRN 01/30/21 methocarbamoL [Robaxin] 500 mg PO BID PRN 30 Days #60 tab 05/07/22 Diclofenac Sodium Gel [Voltaren Gel] 100 gm TOPICAL BID PRN 30 Days #100 ml 07/29/22 Controlled Substance Measures - Controlled Substance Measures Is patient prescribed a controlled substance at discharge?: No
== END | disposition home or self-care (01) ==
LOC: PNWHC3 12:56
PROVIDERS: ATTEND Specialist
DX: M54.17 Radiculopathy, lumbosacral region (principal)
CPT/HCPCS: 99211